=== PATIENT | male | born 1955 | race Caucasian/White ===

== ENCOUNTER → 2019-01-03 | Outpatient (REF) | payer OTHER ==
[2019-01-03 12:36] LABS: BASO # 0.1 10^3/uL (0.0-0.2); BASO % 0.8 % (0.0-1.0); EOS # 0.3 10^3/uL (0.0-0.50); EOS % 3.6 % (0.0-3.0); HEMATOCRIT 44.7 % (42.0-52.0); HEMOGLOBIN 15.2 g/dl (13.5-17.5); LYMPH # 1.8 10^3/uL (1.5-4.5); LYMPH % 23.7 % (24.0-44.0); MEAN CORPUSCULAR VOLUME 97.2 fl (80.0-96.0); MONO % 12.4 % (0.0-5.0); NEUTROPHILS # 4.6 10^3/uL (1.8-7.7); NEUTROPHILS % 59.1 % (36.0-66.0); PLATELET COUNT, AUTOMATED 185 10^3/uL (150-450); WHITE BLOOD COUNT 7.7 10^3/uL (4.0-10.0)
[2019-01-03 13:12] LABS: ALBUMIN 4.3 GM/DL (3.2-5.2); ALT/SGPT 69 U/L (12-78); BILIRUBIN,TOTAL 0.6 MG/DL (0.2-1.0); BLOOD UREA NITROGEN 15 MG/DL (7-18); CALCIUM LEVEL 9.5 MG/DL (8.8-10.2); CARBON DIOXIDE LEVEL 31 MEQ/L (21-32); CHLORIDE LEVEL 106 MEQ/L (98-107); CREATININE FOR GFR 1.07 MG/DL (0.70-1.30); FREE T4 0.85 NG/DL (0.76-1.46); GLOMERULAR FILTRATION RATE > 60.0 (>49); GLUCOSE, FASTING 96 MG/DL (70-100); POTASSIUM SERUM 5.6 MEQ/L (3.5-5.1); SODIUM LEVEL 137 MEQ/L (136-145); TOTAL PROTEIN 7.1 GM/DL (6.4-8.2)
== END ==
LOC: M SFHCADAM 08:17
PROVIDERS: ATTEND Physician Assistant Medical
DX: L29.9 Pruritus, unspecified (principal); F10.10 Alcohol abuse, uncomplicated
CPT/HCPCS: 80053; 80061; 84439; 84443; 85025; G0103

== ENCOUNTER → 2019-08-07 | Outpatient (REF) | payer OTHER ==
[2019-08-07 18:34] LABS: ALBUMIN 4.2 GM/DL (3.2-5.2); BILIRUBIN,TOTAL 0.6 MG/DL (0.2-1.0); CALCIUM LEVEL 9.7 MG/DL (8.8-10.2); CREATININE FOR GFR 1.32 MG/DL (0.70-1.30); GLOMERULAR FILTRATION RATE 58.1 (>49); POTASSIUM SERUM 5.1 MEQ/L (3.5-5.1); TOTAL PROTEIN 7.8 GM/DL (6.4-8.2)
== END ==
LOC: M SFHCADAM 13:14
PROVIDERS: ATTEND Physician Assistant Medical
DX: I10 Essential (primary) hypertension (principal); Z00.00 Encounter for general adult medical examination without abnormal findings; F17.210 Nicotine dependence, cigarettes, uncomplicated; F10.10 Alcohol abuse, uncomplicated

== ENCOUNTER → 2020-01-29 | Outpatient (REF) | payer OTHER ==
[2020-01-29 12:55] LABS: BASO # 0.1 10^3/uL (0.0-0.2); BASO % 0.7 % (0.0-1.0); EOS # 0.2 10^3/uL (0.0-0.5); HEMATOCRIT 44.8 % (42.0-52.0); HEMOGLOBIN 15.7 g/dl (13.5-17.5); LYMPH # 1.6 10^3/uL (1.5-5.0); LYMPH % 19.6 % (24.0-44.0); MEAN CORPUSCULAR HEMOGLOBIN 33.9 pg (27.0-33.0); MEAN CORPUSCULAR VOLUME 96.8 fl (80.0-96.0); MONO # 0.9 10^3/uL (0.0-0.8); MONO % 10.4 % (0.0-5.0); NEUTROPHILS # 5.6 10^3/uL (1.5-8.5); NEUTROPHILS % 67.2 % (36.0-66.0); PLATELET COUNT, AUTOMATED 178 10^3/uL (150-450); RED BLOOD COUNT 4.63 10^6/uL (4.30-6.10); WHITE BLOOD COUNT 8.3 10^3/uL (4.0-10.0)
[2020-01-29 13:06] LABS: ALT/SGPT 77 U/L (12-78); BILIRUBIN,TOTAL 0.4 MG/DL (0.2-1.0); BLOOD UREA NITROGEN 15 MG/DL (7-18); CALCIUM LEVEL 9.2 MG/DL (8.8-10.2); CARBON DIOXIDE LEVEL 27 MEQ/L (21-32); CHLORIDE LEVEL 99 MEQ/L (98-107); CHOLESTEROL LEVEL 203 MG/DL (<200); CHOLESTEROL RISK RATIO 2.333 (<5); CREATININE FOR GFR 1.16 MG/DL (0.70-1.30); GLOMERULAR FILTRATION RATE > 60.0 (>49); GLUCOSE, FASTING 167 MG/DL (70-100); HDL CHOLESTEROL 87 MG/DL (>40); LDL CHOLESTEROL 106 MG/DL (<100); NON-HDL-C 116 MG/DL; SODIUM LEVEL 133 MEQ/L (136-145); TOTAL PROTEIN 7.2 GM/DL (6.4-8.2); TRIGLYCERIDES LEVEL 51 MG/DL (<150)
== END ==
LOC: M SFHCADAM 09:01
PROVIDERS: ATTEND Physician Assistant Medical
DX: I10 Essential (primary) hypertension (principal); F17.210 Nicotine dependence, cigarettes, uncomplicated; F10.10 Alcohol abuse, uncomplicated

== ENCOUNTER → 2020-02-05 | Outpatient (REF) | payer MEDICARE ==
[2020-02-05 13:28] LABS: HEMOGLOBIN A1c 5.5 %
== END ==
LOC: M SFHCADAM 08:51
PROVIDERS: ATTEND Physician Assistant Medical
DX: R73.01 Impaired fasting glucose (principal)
CPT/HCPCS: 83036; G0402

== ENCOUNTER → 2020-11-05 | Outpatient (REF) | payer MEDICARE, OTHER ==
[2020-11-05 16:28] LABS: BASO % 0.3 % (0.0-1.0); EOS # 0.2 10^3/uL (0.0-0.5); EOS % 1.8 % (0.0-3.0); HEMATOCRIT 42.9 % (42.0-52.0); HEMOGLOBIN 14.5 g/dl (13.5-17.5); LYMPH # 1.5 10^3/uL (1.5-5.0); LYMPH % 17.1 % (24.0-44.0); MEAN CORPUSCULAR HEMOGLOBIN 32.7 pg (27.0-33.0); MEAN CORPUSCULAR HGB CONC 33.8 g/dl (32.0-36.5); MEAN CORPUSCULAR VOLUME 96.6 fl (80.0-96.0); NEUTROPHILS # 6.2 10^3/uL (1.5-8.5); NEUTROPHILS % 69.5 % (36.0-66.0); PLATELET COUNT, AUTOMATED 185 10^3/uL (150-450); RED BLOOD COUNT 4.44 10^6/uL (4.30-6.10); WHITE BLOOD COUNT 8.9 10^3/uL (4.0-10.0)
[2020-11-05 16:42] LABS: ALBUMIN 4.5 GM/DL (3.2-5.2); BILIRUBIN,TOTAL 0.5 MG/DL (0.2-1.0); CALCIUM LEVEL 9.9 MG/DL (8.8-10.2); CREATININE FOR GFR 1.29 MG/DL (0.70-1.30); FREE T4 1.05 NG/DL (0.76-1.46); GLOMERULAR FILTRATION RATE 59.5 (>49); POTASSIUM SERUM 5.2 MEQ/L (3.5-5.1); THYROID STIMULATING HORMONE 1.01 uIU/ML (0.358-3.740); TOTAL PROTEIN 7.6 GM/DL (6.4-8.2)
== END ==
LOC: M SFHCADAM 13:31
PROVIDERS: ATTEND Physician Assistant Medical
DX: R22.1 Localized swelling, mass and lump, neck (principal); Z79.899 Other long term (current) drug therapy

== ENCOUNTER → 2020-11-19 | Outpatient (REF) | payer MEDICARE, OTHER ==
[2020-11-19 13:27] LABS: CHOLESTEROL LEVEL 170 MG/DL (<200); CHOLESTEROL RISK RATIO 1.868 (<5); HDL CHOLESTEROL 91 MG/DL (>40); LDL CHOLESTEROL 72 MG/DL (<100); NON-HDL-C 79 MG/DL; TRIGLYCERIDES LEVEL 35 MG/DL (<150)
[2020-11-19 13:47] LABS: HEPATITIS B SURFACE ANTIGEN NEGATIVE (NEGATIVE)
[2020-11-19 14:14] LABS: HEPATITIS C VIRUS ABY INDEX < 0.0 INDEX (<0.8)
[2020-11-19 14:15] LABS: HEPATITIS B CORE ANTIBODY IGM NEGATIVE (NEGATIVE)
[2020-11-19 14:17] LABS: HEPATITIS A ANTIBODY IGM NEGATIVE (NEGATIVE)
== END ==
LOC: M SFHCADAM 08:56
PROVIDERS: ATTEND Physician Assistant Medical
DX: E78.2 Mixed hyperlipidemia (principal); I10 Essential (primary) hypertension; R79.89 Other specified abnormal findings of blood chemistry; D38.0 Neoplasm of uncertain behavior of larynx

== ENCOUNTER → 2020-11-19 | Outpatient (REF) | payer MEDICARE, OTHER ==
[2020-11-19 12:59] LABS: BLOOD UREA NITROGEN 10 MG/DL (7-18); CREATININE FOR GFR 0.97 MG/DL (0.70-1.30); GLOMERULAR FILTRATION RATE > 60.0 (>49)
== END ==
LOC: M LABDRWAD 12:24
PROVIDERS: ATTEND Specialist
DX: D38.0 Neoplasm of uncertain behavior of larynx (principal)

== ENCOUNTER → 2020-11-21 | Outpatient (CLI) | payer MEDICARE ==
[~2020-11-21] MED LIST: ISOVUE-370 76% 100ML VIAL As Ordered ONE
--- NOTE | 2020-11-21 18:45 | REPVR ---
PROCEDURE INFORMATION: Exam: CT Neck With Contrast Exam date and time: 11/21/2020 6:07 PM Age: 65 years old Clinical indication: Other: Neoplasm; Additional info: Joce karthikeyan of [employer] TECHNIQUE: Imaging protocol: Computed tomography images of the neck with intravenous contrast. Radiation optimization: All CT scans at this facility use at least one of these dose optimization techniques: automated exposure control; mA and/or kV adjustment per patient size (includes targeted exams where dose is matched to clinical indication); or iterative reconstruction. Contrast material: ISOVUE 370; Contrast volume: 75 ml; Contrast route: INTRAVENOUS (IV); COMPARISON: No relevant prior studies available. FINDINGS: Nasopharynx: Unremarkable. Oropharynx: Unremarkable. No significant tonsillar enlargement. Hypopharynx: Unremarkable. Larynx: Unremarkable. Normal epiglottis. Retropharyngeal space: Unremarkable. Submandibular/Parotid glands: Normal. Glands are normal in size. Thyroid: Large glottic and infraglottic soft tissue mass on the right side of the larynx measuring 2.8 x 2.3 x 4.5 cm extending anteriorly beyond the anterior commissure into the left side of the larynx, and laterally to the hyoid bone as well as extending lateral to the boundaries of the right thyroid cartilage. Lymph nodes: Enlarged level 2-3 carotid lymph nodes demonstrated on the right measuring 9, 8.5, and 7 mm. Trachea: Visualized trachea is unremarkable. Lungs: Unremarkable as visualized. Bones/joints: The cervical spine demonstrates moderate degenerative changes. Vasculature: Bilateral atherosclerotic calcifications in the proximal internal carotid arteries. Soft tissues: Unremarkable. No significant soft tissue swelling. Other findings: Calcified granulomata right apex. IMPRESSION: 1. 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 2. Enlarged cervical chain lymph nodes on the right consistent with metastatic disease. COMMENTS: Consistent with the [employer]'s Incidental Findings Committee white paper (J Am Dameon Radiol 2015): In patients aged 35 years and older with an incidental thyroid nodule equal to or greater than 1.[address], MRI or extrathyroidal US, further evaluation with dedicated thyroid US is recommended for patients with normal life expectancy and without comorbidities. For smaller nodules without suspicious features, no further evaluation or follow up is recommended. Electronically signed by: Fabien Bailey On 11/21/2020 18:45:43 PM
== END ==
LOC: M RAD 18:00
PROVIDERS: ATTEND Specialist
DX: D38.0 Neoplasm of uncertain behavior of larynx (principal)
CPT/HCPCS: 70491; Q9967

== ENCOUNTER → 2020-11-28 | Outpatient (CLI) | payer MEDICARE ==
--- NOTE | 2020-11-28 08:17 | REP ---
INDICATION: ELEVATED LFTS. COMPARISON: None. TECHNIQUE: Right upper quadrant sonography. FINDINGS: Scanning through the right upper quadrant of the abdomen demonstrates a normal sized, thin-walled gallbladder without evidence of stone or polyp. Common bile duct is normal measuring 0.6 cm in greatest diameter. No focal liver lesion is seen. Liver size is normal. No pancreatic abnormality is observed. No right renal abnormality is seen. There is no evidence of ascites. The right kidney measures 12.0 x 5.5 x 4.8 cm. There is a fold in the fundus of the gallbladder. This is normal. IMPRESSION: Negative right upper quadrant sonography. <Electronically signed by Kevin Pedraza > 11/28/20 0823
== END ==
LOC: M RAD 06:31
PROVIDERS: ATTEND Physician Assistant Medical
DX: R79.89 Other specified abnormal findings of blood chemistry (principal)

== ENCOUNTER → 2020-12-16 | Outpatient (CLI) | payer MEDICARE, OTHER ==
--- NOTE | 2020-12-16 11:40 | REP ---
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 COMPARISON: Comparison soft tissue neck CT study November 21, 2020.. TECHNIQUE: Fifty minutes following the intravenous injection of a 17.84 mCi dose of F-18 FDG, three-dimensional PET scintigraphy is acquired from the skull base to the proximal thighs. Triplanar noncontrast CT scanning is acquired through the same anatomic range for attenuation correction, and image registration with scan parameters optimized to minimize radiation exposure to the patient. PET scintigraphy and CT datasets were fused and displayed on a workstation with multiplanar and projection display capability. FINDINGS: The patient's known supraglottic laryngeal mass is quite hypermetabolic. Maximum standard uptake value in the right supraglottic laryngeal mass is 11.74. There are 3 identifiable right anterior cervical lymph nodes which are also hypermetabolic. The most cranial of these has maximum standard uptake value 8.91. There is a small node believed to be just lateral to the main mass with maximum standard uptake value 4.40. Caudal to the level of the mass, there is a enlarged lymph node with maximum standard uptake value 6.71. No other cervical adenopathy is appreciated. No contralateral hypermetabolic uptake is observed in the head and neck soft tissues. No abnormal hypermetabolic uptake is seen within the thorax. In the abdomen and pelvis, normal hepatic, splenic, and gastrointestinal FDG distribution is seen. No abnormal hypermetabolic uptake is seen in the abdomen or pelvis. IMPRESSION: The known right supraglottic mass and 3 right anterior cervical lymph nodes show hypermetabolic uptake. Otherwise negative <Electronically signed by Kevin Pedraza > 12/16/20 [id number]
== END ==
LOC: M PLARAD 07:30
PROVIDERS: ATTEND Specialist
DX: C32.8 Malignant neoplasm of overlapping sites of larynx (principal)
CPT/HCPCS: 78815; A9552

== ENCOUNTER → 2021-01-09 | Outpatient (CLI) | payer MEDICARE, OTHER ==
[~2021-01-09] MED LIST changes: -ISOVUE-370 76% 100ML VIAL As Ordered ONE; +LISI20TA33 PO
--- NOTE | 2021-01-09 20:33 | ECGEPIP ---
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
== END ==
LOC: M EKG 11:29
PROVIDERS: ATTEND Anesthesiology
DX: Z01.818 Encounter for other preprocedural examination (principal)

== ENCOUNTER → 2021-01-09 | Outpatient (CLI) | payer MEDICARE, OTHER | LOC: M LABSMTC 12:26 | PROVIDERS: ATTEND Anesthesiology | DX: Z01.818 Encounter for other preprocedural examination (principal); Z11.52 Encounter for screening for COVID-19 ==

== ENCOUNTER 2021-01-13 07:04 | Day surgery (SDC) | payer MEDICARE, OTHER ==
[~2021-01-13] VITALS: Ht 180.3 cm; Wt 75.7 kg
[~2021-01-13 07:04] MED LIST changes: +LR 1,000 ML IV ONE
[2021-01-13] MEDS ORDERED: propofoL 200 MG/20 ML VIAL As Ordered ONE ×2 (08:15→09:41)
[2021-01-13] MEDS ORDERED: LIDOCAINE 2% 100MG/5ML SDV (FOR ANES.) As Ordered ONE (08:16)
[2021-01-13] MEDS ORDERED: ROCURONIUM BROMIDE 50 MG/5 ML VIAL As Ordered ONE (08:17)
[2021-01-13] MEDS ORDERED: ONDANSETRON 4MG/2ML VIAL As Ordered ONE (08:21)
[2021-01-13] MEDS ORDERED: MIDAZOLAM INJ 2MG/2ML VIAL (J2250 PER 1MG) As Ordered ONE (08:21)
[2021-01-13] MEDS ORDERED: dexameTHASONE 4 MG/ML 1ML VIAL (J1100 PER 1MG) As Ordered ONE (08:21)
[2021-01-13] MEDS ORDERED: fentaNYL 100 MCG/2 ML INJECTION (J3010) As Ordered ONE ×2 (08:21→09:40)
[2021-01-13] MEDS ORDERED: CETACAINE SPRAY 5GM As Ordered ONE (08:55)
[2021-01-13] MEDS ORDERED: METHYLENE BLUE 0.5% (5MG/ML) 10 ML AMP (PROVAYBLUE) As Ordered ONE (08:56)
[2021-01-13] MEDS ORDERED: EPINEPHrine 1MG/ML INJ 30ML MD-VIAL As Ordered ONE (08:56)
[2021-01-13] MEDS ORDERED: ALBUTEROL 6.7GM INHALER **FOR ANES. CART/OMNICELL ONLY As Ordered ONE (09:32)
[2021-01-13] MEDS ORDERED: OXYMETAZOLINE 0.05% NASAL SPRAY (AFRIN) As Ordered ONE (09:36)
[2021-01-13] MEDS ORDERED: SUCCINYLCHOLINE 100 MG/5 ML SYRINGE (J0330) As Ordered ONE (09:47)
[2021-01-13] MEDS ORDERED: ACETAMINOPHEN 1000MG 100ML IV BTL (OFIRMEV) (J0131 PER 10MG) As Ordered ONE (09:52)
[2021-01-13] MEDS ORDERED: PERCOCET 5MG/325MG TAB PO PRN (10:25)
[2021-01-13] MEDS ORDERED: fentaNYL 100 MCG/2 ML INJECTION (J3010) IV PRN (10:25)
[2021-01-13] MEDS ORDERED: ONDANSETRON 4MG/2ML VIAL IV PRN (10:25)
[2021-01-13] MEDS ORDERED: LR 1,000 ML IV SCH (10:25)
[2021-01-13] MEDS ORDERED: METOCLOPRAMIDE INJ 10MG/2ML VIAL (J2765 PER 1) IV PRN (10:25)
[2021-01-13 11:10] VITALS: BP 186/74
--- NOTE | 2021-01-13 11:29 | RO ---
OPERATIVE NOTE DATE OF OPERATION: 01/13/2021 PREOPERATIVE DIAGNOSIS: Neoplastic mass of the right supraglottic larynx and hypopharynx. 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 PROCEDURE: Direct laryngoscopy with biopsy. SURGEON: Jose Carlos Campbell MD GENERAL MATCHER: ANESTHESIA: INDICATIONS: This is a 65-year-old with long history of smoking, presents with 2-3 month history of sore throat. Office examination suggested the presence of large infiltrating mass of the right lateral pharynx and piriform fossa area. DESCRIPTION OF PROCEDURE: Satisfactory general endotracheal anesthesia was administered. The patient was placed in the usual position for head and neck endoscopy. Double-lighted Dedo laryngoscope was inserted into the oropharynx. There was quite vascular bleeding mass seen emerging from the lateral aspect of the aryepiglottic fold extending laterally toward the pharyngeal wall on the right. This mass did not extend down into the glottis; in fact the glottis was completely free of any tumor. There was no real identifiable space between this tumor mass and the lateral pharyngeal wall on the right. The base of tongue seemed to be free of any tumor. The postcricoid region was clear and the left lateral pharynx and hypopharynx were normal. Photomicrographs were taken and multiple biopsies were taken. For hemostasis Adrenalin pledgets were placed on the bleeding mass and suction cautery was used to coagulate the surface. Throat was suctioned. The patient was awakened, extubated and sent to recovery in satisfactory condition. He will return to the office to discuss management options.
== END 2021-01-13 11:10 | disposition home or self-care (01) ==
LOC: M SDC 07:04
PROVIDERS: ATTEND Specialist
DX: C32.9 Malignant neoplasm of larynx, unspecified (principal); I10 Essential (primary) hypertension; E78.5 Hyperlipidemia, unspecified; Z79.899 Other long term (current) drug therapy; F17.218 Nicotine dependence, cigarettes, with other nicotine-induced disorders
CPT/HCPCS: 31535; 88305; J0131; J0330; J1100; J2250; J2405; J3010; Q9968

== ENCOUNTER → 2021-01-21 | Outpatient (CLI) | payer MEDICARE, OTHER ==
[~2021-01-21] MED LIST changes: -LR 1,000 ML IV ONE
--- NOTE | 2021-01-21 12:32 | RADONC.CN ---
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 He is seen today for consideration of chemoradiation. Diagnosis/Treatment History Oncologic History October 2020: Developed sore throat 11/21/20: CT neck with right supraglottic mass 12/16/20: PET-CT with right supraglottic avidity and multiple ipsilateral cervical nodes 01/13/21: DL and biopsy showing SCC Relevant data: 12/16/20 PET-CT FINDINGS: The patient's known supraglottic laryngeal mass is quite hypermetabolic. Maximum standard uptake value in the right supraglottic laryngeal mass is 11.74. There are 3 identifiable right anterior cervical lymph nodes which are also hypermetabolic. The most cranial of these has maximum standard uptake value 8.91. There is a small node believed to be just lateral to the main mass with maximum standard uptake value 4.40. Caudal to the level of the mass, there is a enlarged lymph node with maximum standard uptake value 6.71. No other cervical adenopathy is appreciated. No contralateral hypermetabolic uptake is observed in the head and neck soft tissues. No abnormal hypermetabolic uptake is seen within the thorax. In the abdomen and pelvis, normal hepatic, splenic, and gastrointestinal FDG distribution is seen. No abnormal hypermetabolic uptake is seen in the abdomen or pelvis. IMPRESSION: The known right supraglottic mass and 3 right anterior cervical lymph nodes show hypermetabolic uptake. Otherwise negative Interval History Here with his . Currently smokes, trying to quit. Still eating all foods, albeit with pain. Does not note any weight loss. Wears dentures. Would prefer no PEG tube. Energy level preserved. 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 Currently pain controlled with ibuprofen. No other significant medical problems. Past Medical History: HPL HTN Past Surgical History: As above Family History: No family history of cancer Social History: Current 1/2 ppd smoker for 50 years Drinks 2 drinks approximately 2 days per week Allergies / Meds Allergies: Coded Allergies: No Known Allergies (Unverified , 01/08/21) Home Meds Reported Medications Lisinopril (Lisinopril) 20 Mg Tablet, 20 MG PO DAILY, TAB 4/21/21 Review of Systems General: Reports: Normal Appetite Constitutional: Denies: Chills, Fever, Night Sweats Eyes: Denies: Pain, Vision change HEENT: Reports: Sore Throat; Denies: Head Aches, Ear Pain, Dysphagia, Sinus Congestion, Post Nasal Drip, Epistaxis Skin: Denies: Rash, Lesions, Bruising Pulmonary: Denies: Dyspnea, Cough Cardiovascular: Denies: Chest Pain, Palpitations, Edema Gastrointestinal: Denies: Nausea, Vomiting, Abdominal Pain, Diarrhea Genitourinary: Denies: Dysuria, Frequency, Incontinence Hematologic: Denies: Bruising, Petecchia, Enlarged Lymph Nodes Musculoskeletal: Denies: Neck pain, Back pain Neurological: Denies: Weakness, Numbness, Incoordination Psych: Reports: Mood Normal; Denies: Memory Issues, Thoughts of Self Harm Vital Signs Ht 72" Wt 170 lbs BMI 23 T 97.5 P 86 RR 18 BP 153/86 O2 97% Pain 0 Fatigue 0 General Exam: Positive: Alert, Cooperative, No Acute Distress Eye Exam: Positive: PERRLA, EOMI ENT EXAM: Positive: Atraumatic, Pharynx Normal, Other ENT (Complete oral cavity examination performed: There are no discernible or palpable mucosal or FOM lesions on bimanual exam. There are no tonsillar or tongue base lesions palpable. He is edentulous with good fitting top and bottom dentures. There are no palpable cervical nodes. Larynx elevated normally with swallowing, laryngeal crepitus intact. ) Chest Exam: Positive: Clear to auscultation Heart Exam: Positive: Rate Normal Abdomen Exam: Positive: Soft Extremity Exam: Negative: Edema Skin Exam: Positive: Nl turgor and temperature Neuro Exam: Positive: Normal Gait, Normal Speech, Cranial Nerves 3-12 NL Psych Exam: Positive: Mental status NL Other Physical Findings Laryngoscopy: The patient provided verbal consent to be scoped. Cetacaine was introduced in the right nostril for anesthesia. The scope was passes through the nasal passage to the nasopharynx where no lesions were noted. The posterior pharyngeal wall was pink and well hydrated. The scope was passed to the oropharynx where on the right side there was obvious mucosal fullness and redness, without ulceration noted on the vallecula, right AE fold, and the BL lingual epiglottis. The epiglottic lesion did not seem to fully envelop the region to the laryngeal surface. The larynx itself was freely mobile and free of tumor. The BL BOT were clear. The pyriform sinus orifice on the right was obscured, the left was clear. The scope was withdrawn and the patient tolerated the procedure well. Diagnostic and Laboratory Diagnostic Review Radiologic images, relevant labs and pathology reports were personally reviewed and discussed with Mr. Montes De Oca. Assessment and Plan Impression Mr. Montes De Oca is a 65 year old male with a history of [id number] stage SERGO SCC of the supraglottic larynx. He is seen today for consideration of chemoradiation. Stage Stage SERGO [id number] SCC of the right supraglottic larynx Performance Status ECOG 1 Plan We had an extensive discussion with Mr. Montes De Oca regarding the diagnosis at hand and available therapeutic options. He is a good candidate for laryngeal preservation based on my exam and on the PET-CT results. His tumor is irregular and involves the epiglottis primarily, because of this he might experience a higher chance of late dysphagia than others, therefore I will refer to MECHANIC SOUND TECHNICIAN now. We discussed PEG tube placement, but because he is a healthy BMI, has had no weight loss and is still taking solid foods I did not insist that he have one placed. He and I agreed to do without for now. For treatment I recommend chemoradiation 70 Gy in 35 fractions with concurrent cisplatin either weekly or q3w at the discretion of medical oncology. I will try and expedite his consultation with them so as not to delay his treatment (was scheduled for 01/13/21 which is too far out). He does not need dental clearance due to edentulousness. We discussed the logistics of receiving radiation therapy in detail including the need for a 1-time planning session. This can occur early next week. We reviewed the side effects of treatment including pain, dysphagia, skin reaction, fibrosis, dysgeusia, ORN, hypothyroidism, and xerostomia. After discussing the risks, benefits and alternatives to radiation therapy, Mr. Montes De Oca was amenable to pursuing radiotherapy. All questions were answered to the patient's satisfaction. We instructed the patient that if there were any questions,concerns or changes in clinical status in the interim to contact us. Recommendations Chemoradiation 70 Gy in 35 fractions Will attempt to expedite medical oncology consult Simulation in the next week Referral to MECHANIC SOUND TECHNICIAN Defer feeding tube for now Billing Statement Total time of [66] minutes was spent preparing for the visit [3], obtaining HPI [10], examining the patient [13], reviewing diagnostic tests [5], discussing management options [20], coordinating care [5], and writing this note [10]. VIVEK FOOTE MD January 21, 2021 12:31
== END ==
LOC: M ONCR 09:45
PROVIDERS: ATTEND General Practice
DX: C13.9 Malignant neoplasm of hypopharynx, unspecified (principal); C32.9 Malignant neoplasm of larynx, unspecified

== ENCOUNTER 2021-02-03 10:14 | Outpatient (RCR) | payer MEDICARE, OTHER ==
[~2021-02-03 10:14] MED LIST changes: +DEXA4TA PO; +PROC10TA4 PO
[2021-02-20] MEDS ORDERED: PROC10TA4 PO (14:18)
[2021-02-20] MEDS ORDERED: DEXA4TA PO (14:18)
== END 2021-02-17 ==
LOC: M ONCR 10:14
PROVIDERS: ATTEND General Practice
DX: C32.1 Malignant neoplasm of supraglottis (principal)

== ENCOUNTER → 2021-03-19 | Outpatient (RCR) | payer MEDICARE, OTHER ==
[~2021-03-19] MED LIST changes: +LIDO2SOL17 PO; +MAGICMW SSP; +NYST50SS SSP; +OXYC1SOL3 PO
== END ==
LOC: M ONCR 02-19 08:51
PROVIDERS: ATTEND General Practice
DX: C32.1 Malignant neoplasm of supraglottis (principal)

== ENCOUNTER → 2021-04-08 | Outpatient (CLI) | payer MEDICARE, OTHER ==
[~2021-04-08] MED LIST changes: +LIDOCAINE 1% MDV 20ML VIAL As Ordered ONE
[2021-04-08 11:45] VITALS: BP 176/78
--- NOTE | 2021-04-08 18:45 | REP ---
PROCEDURE NAME: PICC LINE INSERTION W/SITERITE CLINICAL INFORMATION: POOR VENOUS ACCESS w/HEAD/NECK CA FOR CHEMO. COMPARISON: None. PROCEDURE DESCRIPTION: The procedure was performed by CHELSIE Harris, under the direct supervision of Dr. Brooks. The risks and benefits of the procedure were explained to the patient and an informed consent was obtained both verbally and written. Directly prior to the start of the procedure a formal time-out was completed in the procedure room. The right medial brachial vein was localized using ultrasound guidance. The skin was prepped and draped in sterile fashion. Two mL of 1% lidocaine 10 mg/mL was used as a local anesthetic. Using ultrasound guidance the right medial brachial vein was cannulated, and a 0.018 guidewire was inserted and advanced to the level of SVC using fluoroscopic guidance. The needle was removed and a 4.5 Lithuanian dilator and peel-away sheath was inserted over the guidewire. A 4.5 Lithuanian single lumen catheter was cut to a length of 37 cm. The dilator was removed and the catheter was inserted over the guidewire with the tip ending at the level of the SVC. The peel-away sheath was removed and the catheter was flushed with heparinized saline as per hospital protocol. The catheter was affixed to the skin and a sterile dressing was applied. The patient tolerated the procedure well and there were no immediate complications. CONCLUSION: PICC line insertion into the right medial brachial vein. 0.1 minutes of fluoroscopy time was utilized for this procedure. Some fluoroscopic images are performed with last image hold technology. These images require no additional radiation. <Electronically signed by Valeria Costa > 04/08/21 1436 <Electronically signed by Caleb Brooks > 04/08/21 [id number]
== END ==
LOC: M IRPRO 10:01
PROVIDERS: ATTEND Internal Medicine
DX: C76.0 Malignant neoplasm of head, face and neck (principal)
CPT/HCPCS: 36571; 76937; C1751; J1642; J1644

== ENCOUNTER 2021-04-14 09:05 | Outpatient (RCR) | payer MEDICARE, OTHER ==
[~2021-04-14 09:05] MED LIST changes: -LIDOCAINE 1% MDV 20ML VIAL As Ordered ONE
== END 2021-04-19 ==
LOC: M ONCR 09:05
PROVIDERS: ATTEND General Practice
DX: C32.1 Malignant neoplasm of supraglottis (principal)

== ENCOUNTER → 2021-04-25 | Outpatient (CLI) | payer MEDICARE, OTHER ==
[~2021-04-25] MED LIST changes: +GASTROGRAFIN SOLUTION 30ML (Q9963) As Ordered ONE; +ISOVUE-370 76% 100ML VIAL As Ordered ONE
--- NOTE | 2021-04-25 13:20 | REP ---
INDICATION: THROAT CA. COMPARISON: PET scan dated 12/16/2020. TECHNIQUE: Chest CT with IV contrast. FINDINGS: There are no lung nodules or masses. There are no infiltrates or pleural effusions. There is no mediastinal, hilar or axillary lymphadenopathy. No lymphadenopathy at the thoracic inlet. The thoracic aorta is unremarkable. Cardiac size is normal. There is no pericardial effusion. There are no lytic, blastic or destructive skeletal changes. IMPRESSION: Essentially negative CT study of the chest. <Electronically signed by Caleb Fontaine > 04/25/21 [id number]
--- NOTE | 2021-04-25 13:25 | REP ---
INDICATION: THROAT CA. COMPARISON: PET scan dated 12/16/2020. TECHNIQUE: Abdomen/pelvis CT with IV contrast performed contiguously with the chest CT this same date. FINDINGS: The hepatic parenchyma is homogeneous. The gallbladder and pancreas are unremarkable. The spleen, adrenals, and kidneys are unremarkable. The abdominal aorta is unremarkable except for calcified atheroma. There is no periaortic adenopathy or mass. The bowel and mesentery are unremarkable. There is no ascites. No mesenteric adenopathy. Pelvis: There is no ascites or adenopathy. The bladder is unremarkable. There are no lytic, blastic or destructive skeletal changes. There is degenerative disc disease in the lumbar spine. IMPRESSION: Essentially negative CT of the abdomen and pelvis. <Electronically signed by Caleb Fontaine > 04/25/21 [id number]
--- NOTE | 2021-04-30 16:09 | REPVR ---
PROCEDURE INFORMATION: Exam: CT Neck With Contrast Exam date and time: 04/25/2021 12:50 PM Age: 65 years old Clinical indication: Condition or disease; Cancer; Throat; Additional info: Throat CA TECHNIQUE: Imaging protocol: Computed tomography images of the neck with contrast. Radiation optimization: All CT scans at this facility use at least one of these dose optimization techniques: automated exposure control; mA and/or kV adjustment per patient size (includes targeted exams where dose is matched to clinical indication); or iterative reconstruction. Contrast material: ISOVUE 370; Contrast volume: 75 ml; Contrast route: INTRAVENOUS (IV); COMPARISON: CT Neck with contrast 11/21/2020 6:10 PM FINDINGS: Nasopharynx: Unremarkable. Oropharynx: Unremarkable. No significant tonsillar enlargement. Hypopharynx: Improved compared to the prior study. There is persistent masslike thickening of the right epiglottis as well as right hypopharynx, specifically thickening of the right aryepiglottic fold as well as piriform sinus herrera. Areas of soft tissue thickening are partially calcified. Larynx: See hypopharynx above comments on the epiglottis. Retropharyngeal space: Unremarkable. Submandibular/Parotid glands: Normal. Glands are normal in size. Thyroid: Normal. No enlarged or calcified nodules. Lymph nodes: Decreased right cervical lymphadenopathy. For example, a right level 2 lymph node measures 6 x 5 mm compared to 12 x 9 mm previously. An additional right level 2 lymph node is similar in size measuring approximately 9 x 7 mm compared to 10 x 6 mm previously. The lymph nodes appears more dense, likely partially calcified. Residual hyperdense, partially calcified treated right level 2 lymph node measures 7 x 6 mm compared to 11 x 9 mm previously. There are shotty dense potentially calcified lymph nodes deep to the right sternocleidomastoid muscle, image 59 series 201, image 34 series 203; component of enhancing shotty metastatic adenopathy is possible. Though small in size, these lymph nodes do appear more conspicuous compared to the prior study. Trachea: Visualized trachea is unremarkable. Lungs: Unremarkable as visualized. Bones/joints: Moderate cervical spine degenerative changes. Focal, sclerotic lesion in the right aspect of the T1 vertebral body is stable, probably a bone island. Vasculature: Carotid atherosclerosis is again demonstrated, in particular proximal right ICA atherosclerosis. Soft tissues: Unremarkable. IMPRESSION: 1. Improvement compared to the prior study with residual right supraglottic mass. 2. Residual right cervical lymphadenopathy some of which appears hyperdense probably reflecting post treatment change. Electronically signed by: Marcela Cabrera On 04/30/2021 16:08:40 PM
== END ==
LOC: M RAD 11:17
PROVIDERS: ATTEND Internal Medicine
DX: C14.0 Malignant neoplasm of pharynx, unspecified (principal)
CPT/HCPCS: 70491; 71260; 74177; Q9963; Q9967

== ENCOUNTER → 2021-04-29 | Outpatient (CLI) | payer MEDICARE, OTHER ==
[~2021-04-29] MED LIST changes: -GASTROGRAFIN SOLUTION 30ML (Q9963) As Ordered ONE; -ISOVUE-370 76% 100ML VIAL As Ordered ONE
--- NOTE | 2021-04-29 09:34 | RADENCPD ---
Date/Time of Encounter Date of Encounter: Apr 29, 2021 Time of Encounter: 09:26 Encounter Sarbjit came in for a brief follow up today now 2 weeks removed from completing his chemoradiation for supraglottic SCC. His pain in the throat peaked in the days immediately after completing treatment on 04/14/21. This has since resolved completely. He has no choking or difficulty swallowing at this point. He does complain of decreased appetite and lightheadedness with standing especially in the last week. He does not have any taste sensations at present. Food is unappealing. Vitals: Wt 152 lbs (from 160 on 04/14/21) T 96.5 P 98 RR 18 BP 110/65 O2 99% Pain 0 Fatigue 7 Oral cavity is clear, no thrush or residual mucositis of the soft palate or oropharynx Neck with hyperpigmentation and resolving dry desquamation No palpable adenopathy BL Sarbjit is likely dehydrated as indicated by his elevated BL heart rate and weight loss. I encouraged him to focus on drinking extra fluids and eating calorie dense foods. He should strive to stabilize his weight loss over the next week and then try to gain a modest 0.5-1 lb weekly I reviewed his recent CT scans (ordered by medical oncology apparently for what purpose I do not know, given PET-CT @ 3 months is standard and had been ordered). These show no concerning findings in the neck, chest, abdomen or pelvis. We agreed that he would call back in a week if he continues to feel depleted despite rehydration and improved nutrition. Otherwise will follow up in June with his PET-CT and scope exam. VIVEK FOOTE MD Apr 29, 2021 09:34
== END ==
LOC: M ONCR 08:50
PROVIDERS: ATTEND General Practice
DX: C32.1 Malignant neoplasm of supraglottis (principal); Z92.21 Personal history of antineoplastic chemotherapy; Z92.3 Personal history of irradiation

== ENCOUNTER → 2021-07-07 | Outpatient (CLI) | payer MEDICARE, OTHER ==
--- NOTE | 2021-07-07 12:26 | REP ---
INDICATION: RESTAGING SUPRAGLOTTIC CANCER C32.1. COMPARISON: 12/16/2020 TECHNIQUE: After the intravenous administration of 8.88 mCi of FDG 18 triplane whole-body PET-CT was performed from the skull base to the mid thigh. FINDINGS: The focal supraglottic laryngeal particularly right-sided hypermetabolic activity seen at the level of the hyoid bone on the prior examination is no longer present. There is a more diffuse type hypermetabolic activity pattern at that level and inferiorly including the posterior soft tissues at the level of the thyroid cartilage in the region of the arytenoid cartilages and having a maximal SUV value of 4.02. There is a single tiny focus of hypermetabolic activity seen in the mediastinum at the level of the oriana having a maximal SUV value of 3.27. No other areas of abnormal hypermetabolic activity are seen in the neck, chest, abdomen, or pelvis. There is diffuse hypermetabolism seen throughout the esophagus which is likely secondary to reflux esophagitis. There is scattered hypermetabolism seen throughout the axial skeleton likely secondary to chemo reactive change. IMPRESSION: Hypermetabolism described above involving the neck is all likely secondary to post radiation changes as the focality of the abnormality seen on the prior exam has abated. This, however, needs to be correlated clinically with close follow-up. The single focus of hypermetabolic activity seen in the mediastinum has no corresponding CT finding of adenopathy. This needs to be followed closely with contrast-enhanced CT of the chest as today CT is a nondiagnostic noncontrast enhanced CT. The skeletal activity seen today is likely secondary to chemo reactive change. <Electronically signed by Scottie Garcia > 07/07/21 [id number]
== END ==
LOC: M PLARAD 08:55
PROVIDERS: ATTEND General Practice
DX: C32.1 Malignant neoplasm of supraglottis (principal)
CPT/HCPCS: 78815; A9552

== ENCOUNTER → 2021-07-10 | Outpatient (CLI) | payer MEDICARE, OTHER ==
[~2021-07-10] MED LIST changes: +CETACAINE SPRAY 5GM MT ONE
--- NOTE | 2021-07-10 11:03 | RADONC ---
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 He underwent chemoradiation 70 Gy in 35 fractions with weekly cisplatin completed 02/19/21- 04/14/21. He is seen for follow up and survivorship care. Diagnosis/Treatment History Oncologic History October 2020: Developed sore throat 11/21/20: CT neck with right supraglottic mass 12/16/20: PET-CT with right supraglottic avidity and multiple ipsilateral cervical nodes 01/13/21: DL and biopsy showing SCC 02/19/21-04/14/21: Chemoradiation 70 Gy in 35 fractions weekly cisplatin Recent data: 07/07/21 PET-CT Mild and diffuse residual uptake in the neck. No focal uptake in the right supraglottis or previously avid LN CR Survivorship: Test Due Next Last result Notes TSH, T4 6m post-tx, then q1y 09/2021 Carotid US q10 y post-tx 2030 Smoking cessation Assess annually if applicable N/A Quit 01/[address] q1y once CR confirmed Summer 2021 PET-CT 07/07/21 CBC,CMP, Lipids q1y Summer 2021 Interval History Sarbjit is doing well. Weight and appetite are stable. No oral pain. No dysphagia or dry mouth. Taste sensations are returning slowly. He is off his BP medications. 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 Social History: 25 pack year former smoker (quit January 2021) Drinks 2 drinks 2 days per week Allergies / Meds Allergies: Coded Allergies: No Known Allergies (Unverified , 01/08/21) Home Meds Active Scripts Oxycodone HCl (Oxycodone HCl) 5 Mg/5 Ml Solution, 5 ML PO Q4HP PRN for MUCOSITIS MDD 30 Milliliter(s) for 7 Days, #210 ML Prov:VIVEK FOOTE MD 03/31/21 Lidocaine HCl (Lidocaine HCl Viscous) 15 Ml Solution, 15 ML PO QID PRN for MUCOSITIS for 1 Day, #400 ML 5 Refills Prov:VIVEK FOOTE MD 02/26/21 Prochlorperazine Maleate (Prochlorperazine Maleate) 10 Mg Tablet, 10 MG PO Q4H PRN for NAUSEA OR VOMITING for 5 Days, #15 TAB 2 Refills Prov:DORY RESTREPO MDFRCP 02/20/21 Reported Medications Lisinopril (Lisinopril) 20 Mg Tablet, 20 MG PO DAILY, TAB 01/08/21 Review of Systems Review of Systems Constitutional: Denies: Chills, Fever, Fatigue, Weight Loss Eyes: Denies: Pain HEENT: Denies: Head Aches, Ear Pain, Dysphagia, Sore Throat Skin: Denies: Rash Pulmonary: Denies: Dyspnea, Cough Cardiovascular: Denies: Chest Pain Gastrointestinal: Denies: Abdominal Pain Hematologic: Denies: Enlarged Lymph Nodes Endocrine: Denies: Cold Intolerance Musculoskeletal: Denies: Neck pain, Back pain Neurological: Denies: Weakness, Numbness Psych: Reports: Mood Normal Physical Examination Vital Signs Wt 165 lbs T 97 P 114 RR 16 BP 161/86 O2 99% Pain 0 Fatigue 0 General Exam: Alert, Cooperative, No Acute Distress Eye Exam: [facility] E[facility] EXAM: Other ENT (Full head and neck exam completed: The oral mucosa is pink and well hydrated. Top and bottom dentures in place. There are no visible or palpable lesions in the oral cavity, FOM and the visible portions of the oropharynx. Gag reflex is strong. There is no trismus. The necks are mildly hyperpigmentated, with some submental lymphedema present. The larynx elevates appropriately with swallowing, there is preserved laryngeal crepitus. Voice is strong. There is no palpable adenopathy BL.) Chest Exam: Clear to auscultation, Normal air movement Heart Exam: Rate Normal, Regular Rhythm Abdomen Exam: Soft Extremity Exam: Negative: Edema Neuro Exam: Normal Gait, Normal Speech, Cranial Nerves 3-12 NL Psych Exam: Mental status NL Other Physical Findings Laryngoscopy: Sarbjit provided verbal consent to be scoped. Cetacaine was introduced in the right nare for anesthesia. The scope was introduced and easily passed to the right nasopharynx which was normal appearing. The posterior pharyngeal wall was pink and well hydrated, the scope was then passed to the oropharynx and the BL BOT were WNL without lesions. The epiglottis was upright and sharp rimmed, the left AE fold was normal appearing, the right AE fold and vallecula contain a pale white scar without evidence of mass or ulceration. The larynx is freely mobile with phonation no true cord or ventricular lesions. The pyriform sinuses are normal appearing BL. The scope was withdrawn and the patient tolerated the procedure well. Diagnostic and Laboratory Diagnostic Review Radiologic images, relevant labs and pathology reports were personally reviewed and discussed with Mr. Montes De Oca. Assessment and Plan Impression Assessment Mr. 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 He underwent chemoradiation 70 Gy in 35 fractions with weekly cisplatin completed 02/19/21-04/14/21. He is seen f or follow up and survivorship care. He has recovered very well. His PET-CT demonstrates a CR. His exam today has no evidence of residual or recurrent tumor. He is thus in remission. For survivorship he is due for TFTs at next visit which will be in 3 months time. Performance Status ECOG 0 Plan Follow up in 3 months TFTs at next visit Mr. Montes De Oca was encouraged to call with questions or concerns in the interim period. Billing Statement Total time of [32] minutes was spent preparing for the visit [1], obtaining HPI [5], examining the patient [7], reviewing diagnostic tests [4], discussing management options [5], coordinating care [2], and writing this note [8]. VIVEK FOOTE MD Jul 10, 2021 11:03
== END ==
LOC: M ONCR 08:50
PROVIDERS: ATTEND General Practice
DX: C32.1 Malignant neoplasm of supraglottis (principal); Z79.899 Other long term (current) drug therapy; Z87.891 Personal history of nicotine dependence; Z92.21 Personal history of antineoplastic chemotherapy; Z92.3 Personal history of irradiation
CPT/HCPCS: 31575; G0463

== ENCOUNTER → 2021-10-06 | Outpatient (CLI) | payer MEDICARE, OTHER ==
[~2021-10-06] MED LIST changes: -CETACAINE SPRAY 5GM MT ONE; -PROC10TA4 PO; +PROC10TA5 PO; +SODIUM CHLORIDE 0.9% INJ 10 ML SYR IV PRN
[2021-10-06 10:18] LABS: FREE T4 1.19 NG/DL (0.76-1.46); THYROID STIMULATING HORMONE 0.867 uIU/ML (0.358-3.740)
== END ==
LOC: M ONCR 08:56
PROVIDERS: ATTEND General Practice
DX: C32.1 Malignant neoplasm of supraglottis (principal)

== ENCOUNTER → 2022-01-15 | Outpatient (CLI) | payer MEDICARE, OTHER ==
[~2022-01-15] MED LIST changes: +CETACAINE SPRAY 5GM MT ONE; -SODIUM CHLORIDE 0.9% INJ 10 ML SYR IV PRN; +SYMB16INH INH; +VENTAER INH
== END ==
LOC: M ONCR 08:18
PROVIDERS: ATTEND General Practice
DX: C32.1 Malignant neoplasm of supraglottis (principal); R06.09 Other forms of dyspnea; R05.8 Other specified cough; R63.4 Abnormal weight loss; Z79.899 Other long term (current) drug therapy; Z87.891 Personal history of nicotine dependence; Z92.21 Personal history of antineoplastic chemotherapy; Z92.3 Personal history of irradiation
CPT/HCPCS: 31575; G0463

== ENCOUNTER → 2022-01-23 | Outpatient (CLI) | payer MEDICARE, OTHER ==
[~2022-01-23] MED LIST changes: -CETACAINE SPRAY 5GM MT ONE; +ISOVUE-370 76% 100ML VIAL As Ordered ONE
[2022-01-23 18:07] LABS: ALBUMIN 2.9 GM/DL (3.2-5.2); BILIRUBIN,TOTAL 0.5 MG/DL (0.2-1.0); CALCIUM LEVEL 10.8 MG/DL (8.8-10.2); CREATININE FOR GFR 1.56 MG/DL (0.70-1.30); GLOMERULAR FILTRATION RATE 47.5 (>49); POTASSIUM SERUM 4.5 MEQ/L (3.5-5.1); TOTAL PROTEIN 7.5 GM/DL (6.4-8.2)
== END ==
LOC: M RAD 16:58
PROVIDERS: ATTEND General Practice
DX: C32.1 Malignant neoplasm of supraglottis (principal)
CPT/HCPCS: 36415; 70491; 71260; 80053; Q9967

== ENCOUNTER → 2022-02-23 | Outpatient (CLI) | payer MEDICARE, OTHER ==
[~2022-02-23] MED LIST changes: -ISOVUE-370 76% 100ML VIAL As Ordered ONE
== END ==
LOC: M PLARAD 11:15
PROVIDERS: ATTEND General Practice
DX: C32.2 Malignant neoplasm of subglottis (principal)
CPT/HCPCS: 78815; A9552

== ENCOUNTER → 2022-02-26 | Outpatient (CLI) | payer MEDICARE, OTHER ==
[~2022-02-26] MED LIST changes: +LIDOCAINE 1% MDV 20ML VIAL As Ordered ONE; +ONDA-84 PO
[2022-02-26 10:45] VITALS: BP 129/70
== END ==
LOC: M IRPRO 10:01
PROVIDERS: ATTEND General Practice
DX: R22.2 Localized swelling, mass and lump, trunk (principal); Z85.828 Personal history of other malignant neoplasm of skin

== ENCOUNTER → 2022-02-27 | Outpatient (CLI) | payer MEDICARE, OTHER ==
[~2022-02-27] MED LIST changes: -LIDOCAINE 1% MDV 20ML VIAL As Ordered ONE; -ONDA-84 PO
== END ==
LOC: M ONCR 08:59
PROVIDERS: ATTEND General Practice
DX: C32.1 Malignant neoplasm of supraglottis (principal); C76.1 Malignant neoplasm of thorax; C77.0 Secondary and unspecified malignant neoplasm of lymph nodes of head, face and neck; R53.83 Other fatigue; R63.0 Anorexia; Z79.51 Long term (current) use of inhaled steroids; Z87.891 Personal history of nicotine dependence; Z92.21 Personal history of antineoplastic chemotherapy; Z92.3 Personal history of irradiation

== ENCOUNTER → 2022-03-09 | Outpatient (CLI) | payer MEDICARE, OTHER ==
[~2022-03-09] MED LIST changes: +LIDOCAINE 1% MDV 20ML VIAL As Ordered ONE; +MIDAZOLAM INJ 2MG/2ML VIAL (J2250 PER 1MG) As Ordered ONE; +NS 1,000 ML IV SCH; +ONDA-84 PO; +ceFAZolin 2 GM/D5W 50 ML IV BAG (J0690 PER 500MG) As Ordered ONE; +ceFAZolin SOD 2 GM in IV 1 EA IV ONE; +diphenhydrAMINE 50MG/ML VIAL (J1200) As Ordered ONE; +fentaNYL 100 MCG/2 ML INJECTION As Ordered ONE
[2022-03-09 12:07] LABS: HEMATOCRIT 33.5 % (42.0-52.0); HEMOGLOBIN 10.5 g/dl (13.5-17.5); MEAN CORPUSCULAR HEMOGLOBIN 30.8 pg (27.0-33.0); MEAN CORPUSCULAR HGB CONC 31.3 g/dl (32.0-36.5); MEAN CORPUSCULAR VOLUME 98.2 fl (80.0-96.0); PLATELET COUNT, AUTOMATED 224 10^3/uL (150-450); RED BLOOD COUNT 3.41 10^6/uL (4.30-6.10); WHITE BLOOD COUNT 11.4 10^3/uL (4.0-10.0)
[2022-03-09 12:16] LABS: INR 0.94
[2022-03-09 12:36] LABS: ALBUMIN 2.9 GM/DL (3.2-5.2); BILIRUBIN,TOTAL 0.5 MG/DL (0.2-1.0); CREATININE FOR GFR 2.24 MG/DL (0.70-1.30); GLOMERULAR FILTRATION RATE 31.3 (>49); POTASSIUM SERUM 4.3 MEQ/L (3.5-5.1); TOTAL PROTEIN 7.8 GM/DL (6.4-8.2)
[2022-03-09 15:33] VITALS: BP 129/71
== END ==
LOC: M IRPRO 10:55
PROVIDERS: ATTEND General Practice
DX: C32.1 Malignant neoplasm of supraglottis (principal)
CPT/HCPCS: 36561; 80053; 85027; 85610; 87426; C1769; C1788; C1894; J0690; J1200; J1642; J1644; J2250; J3010

== ENCOUNTER → 2022-03-24 | Outpatient (POV) | payer MEDICARE, OTHER ==
[~2022-03-24] VITALS: Ht 180.3 cm; Wt 59.1 kg
[~2022-03-24] MED LIST changes: -LIDOCAINE 1% MDV 20ML VIAL As Ordered ONE; -MIDAZOLAM INJ 2MG/2ML VIAL (J2250 PER 1MG) As Ordered ONE; -NS 1,000 ML IV SCH; -ceFAZolin 2 GM/D5W 50 ML IV BAG (J0690 PER 500MG) As Ordered ONE; -ceFAZolin SOD 2 GM in IV 1 EA IV ONE; -diphenhydrAMINE 50MG/ML VIAL (J1200) As Ordered ONE; -fentaNYL 100 MCG/2 ML INJECTION As Ordered ONE
[2022-03-24 13:15] VITALS: BP 139/75
== END ==
LOC: M IRPOV 13:08
PROVIDERS: ATTEND Radiology Diagnostic Radiology
DX: Z45.2 Encounter for adjustment and management of vascular access device (principal)

== ENCOUNTER 2022-04-01 14:54 | Inpatient (IN) | payer MEDICARE, OTHER ==
[~2022-04-01] VITALS: Ht 180.3 cm; Wt 56.9 kg
[2022-04-01 15:50] LABS: HEMATOCRIT 23.7 % (42.0-52.0); MEAN CORPUSCULAR HEMOGLOBIN 32.4 pg (27.0-33.0); MEAN CORPUSCULAR HGB CONC 33.8 g/dl (32.0-36.5); RED BLOOD COUNT 2.47 10^6/uL (4.30-6.10); WHITE BLOOD COUNT 1.2 10^3/uL (4.0-10.0)
[2022-04-01] MEDS ORDERED: NS 1,000 ML IV SCH (15:55)
[2022-04-01 16:03] LABS: INR 0.94
[2022-04-01 16:10] LABS: PLATELET COUNT, AUTOMATED 18 10^3/uL (150-450)
[2022-04-01 16:30] LABS: CALCIUM LEVEL 10.2 MG/DL (8.8-10.2); CREATININE FOR GFR 1.64 MG/DL (0.70-1.30); FREE T4 1.34 NG/DL (0.76-1.46); GLOMERULAR FILTRATION RATE 44.8 (>49); MAGNESIUM LEVEL 2.6 MG/DL (1.8-2.4); POTASSIUM SERUM 4.2 MEQ/L (3.5-5.1); THYROID STIMULATING HORMONE 3.51 uIU/ML (0.358-3.740)
[2022-04-01 17:02] LABS: ATYPICAL LYMPH 4 % (0-5); BASOPHILS 2 % (0-1); MONOCYTES 12 % (0-5)
[2022-04-01 17:03] LABS: LYMPHOCYTES 28 % (16-44); NEUTROPHILS 50 % (28-66); PLATELET ESTIMATE MARKED DECREASE (NORMAL)
[2022-04-01 17:04] LABS: OVALOCYTES 1+
[2022-04-01] MEDS ORDERED: GLUCOSE 4GM CHEW TABLET PO PRN (17:25)
[2022-04-01] MEDS ORDERED: DEXTROSE 50% 50 ML SYRINGE IV PRN (17:25)
[2022-04-01] MEDS ORDERED: GLUCAGON INJ 1MG VIAL SC PRN (17:25)
[2022-04-01] MEDS ORDERED: HOME MED LIST COMPLETE! XX SCH (17:50)
[2022-04-01] MEDS ORDERED: SODIUM CHLORIDE 0.9% INJ 10 ML SYR IV PRN (18:20)
[2022-04-01] MEDS: D5W/0.45% SODIUM CHLORIDE 1,000 ML IV SCH ×2 (18:30→23:59)
[2022-04-01 18:38] LABS: RSV AMPLIFICATION NEGATIVE (NEGATIVE)
[2022-04-01] MEDS ORDERED: HEPARIN SOD (PORCINE) 5000UNITS/ML 1ML VIAL/SYRINGE SQ SCH (19:40)
[2022-04-01] MEDS ORDERED: ALBUTEROL 90 MCG/ACT 8GM HFA INHALER INH PRN (19:40)
[2022-04-01] MEDS ORDERED: PROCHLORPERAZINE 5MG TAB PO PRN (19:40)
[2022-04-01 23:44] VITALS: BP_SYST 118; BP_SYST 123; BP_SYST 145; BP_DIAS 70; BP_DIAS 73; BP_DIAS 82
[2022-04-02] VITALS (10 sets, daily range): BP systolic 98–148; BP diastolic 53–75
[2022-04-02 06:21] LABS: MEAN CORPUSCULAR HEMOGLOBIN 31.4 pg (27.0-33.0); MEAN CORPUSCULAR HGB CONC 32.8 g/dl (32.0-36.5); MEAN CORPUSCULAR VOLUME 95.7 fl (80.0-96.0)
[2022-04-02 06:40] LABS: HEMOGLOBIN 6.6 g/dl (13.5-17.5); PLATELET COUNT, AUTOMATED 18 10^3/uL (150-450)
[2022-04-02 06:41] LABS: HEMATOCRIT 20.1 % (42.0-52.0)
[2022-04-02 07:07] LABS: CALCIUM LEVEL 9.1 MG/DL (8.8-10.2); CREATININE FOR GFR 1.46 MG/DL (0.70-1.30); GLOMERULAR FILTRATION RATE 51.3 (>49); PHOSPHORUS LEVEL 3.1 MG/DL (2.5-4.9); POTASSIUM SERUM 4.4 MEQ/L (3.5-5.1)
[2022-04-02] MEDS: CYPROHEPTADINE 4 MG TAB PO SCH ×3 (08:24→17:41)
[2022-04-02] MEDS ORDERED: SODIUM CHLORIDE 0.9% INJ 10 ML SYR IV SCH (09:00)
[2022-04-02 11:56] LABS: PERCENT SATURATION 44.1 % (19.7-50.0)
[2022-04-02 12:44] LABS: FOLATE 22.7 NG/ML
[2022-04-02] MEDS ORDERED: ISOVUE-370 76% 100ML VIAL As Ordered ONE (15:45)
[2022-04-02] MEDS: D5W/0.45% SODIUM CHLORIDE 1,000 ML IV SCH (16:15)
[2022-04-02 18:00] LABS: HEMATOCRIT 28.5 % (42.0-52.0)
[2022-04-02 18:15] LABS: HEMOGLOBIN 9.7 g/dl (13.5-17.5)
[2022-04-02] MEDS ORDERED: SENNA 8.6 MG TAB (SENOKOT) PO PRN (21:30)
[2022-04-02 23:04] LABS: APPEARANCE, URINE CLEAR (CLEAR); BACTERIA, URINE AUTO NEGATIVE (NEGATIVE); BILIRUBIN, URINE AUTO NEGATIVE (NEGATIVE); BLOOD, URINE BLOOD NEGATIVE (NEGATIVE); COLOR, URINE YELLOW (YELLOW); GLUCOSE, URINE (UA) AUTO NEGATIVE (NEGATIVE); KETONE, URINE AUTO NEGATIVE (NEGATIVE); LEUKOCYTE ESTERASE, URINE AUTO NEGATIVE (NEGATIVE); NITRITE, URINE AUTO NEGATIVE (NEGATIVE); PROTEIN, URINE AUTO NEGATIVE (NEGATIVE); RBC, URINE AUTO 0 /HPF (0-3); SPECIFIC GRAVITY URINE AUTO 1.023 (1.002-1.035); SQUAMOUS EPITHELIAL CELL UR AU 0 /HPF (0-6); UROBILINOGEN, URINE AUTO 0.2 mg/dL (0.0-2.0); WBC, URINE AUTO 0 /HPF (0-3)
[2022-04-03] MEDS: TAMSULOSIN 0.4 MG CAP PO SCH ×2 (01:06→20:16)
[2022-04-03] MEDS: D5W/0.45% SODIUM CHLORIDE 1,000 ML IV SCH ×3 (01:45→21:13)
[2022-04-03 05:46] VITALS: BP 127/67
[2022-04-03 05:57] LABS: HEMATOCRIT 25.7 % (42.0-52.0); HEMOGLOBIN 8.8 g/dl (13.5-17.5); MEAN CORPUSCULAR HEMOGLOBIN 31.1 pg (27.0-33.0); MEAN CORPUSCULAR HGB CONC 34.2 g/dl (32.0-36.5); MEAN CORPUSCULAR VOLUME 90.8 fl (80.0-96.0); RED BLOOD COUNT 2.83 10^6/uL (4.30-6.10)
[2022-04-03 06:04] LABS: PLATELET COUNT, AUTOMATED 21 10^3/uL (150-450)
[2022-04-03 06:13] LABS: MAGNESIUM LEVEL 1.9 MG/DL (1.8-2.4); PHOSPHORUS LEVEL 2.4 MG/DL (2.5-4.9)
[2022-04-03 06:35] VITALS: BP_SYST 123; BP_SYST 127; BP_SYST 128; BP_DIAS 66; BP_DIAS 67
[2022-04-03] MEDS: DOCUSATE SODIUM 100MG CAPSULE PO SCH ×2 (08:31→20:16)
[2022-04-03] MEDS: MIRALAX *UNIT DOSE* 17GM PACKET PO SCH (08:31)
[2022-04-03] MEDS: CYPROHEPTADINE 4 MG TAB PO SCH ×3 (08:31→16:34)
[2022-04-03 09:26] LABS: CREATININE FOR GFR 1.34 MG/DL (0.70-1.30); GLOMERULAR FILTRATION RATE 56.6 (>49)
[2022-04-03] MEDS: K-PHOS NEUTRAL 250MG TABLET (SOD.PHOSPHATE/POT.PHOSPHATE) PO SCH ×3 (11:42→20:16)
[2022-04-03] MEDS: LevoFLOXacin 750 MG TABLET PO SCH (13:50)
[2022-04-03 14:00] VITALS: BP 153/76
[2022-04-03 14:10] LABS: HEMATOCRIT 26.4 % (42.0-52.0)
[2022-04-03] MEDS: FILGRASTIM 300 MCG/0.5 ML SYRINGE **SC ADMINISTRATION ONLY SC SCH (16:34)
[2022-04-03 19:48] VITALS: BP 143/72
[2022-04-04 05:16] VITALS: BP 120/65
[2022-04-04] MEDS: D5W/0.45% SODIUM CHLORIDE 1,000 ML IV SCH (06:16)
[2022-04-04 08:01] LABS: HEMATOCRIT 23.7 % (42.0-52.0); HEMOGLOBIN 8.2 g/dl (13.5-17.5); MEAN CORPUSCULAR HEMOGLOBIN 31.5 pg (27.0-33.0); MEAN CORPUSCULAR HGB CONC 34.6 g/dl (32.0-36.5); MEAN CORPUSCULAR VOLUME 91.2 fl (80.0-96.0)
[2022-04-04 08:03] LABS: PLATELET COUNT, AUTOMATED 28 10^3/uL (150-450)
[2022-04-04 08:19] LABS: CALCIUM LEVEL 9.2 MG/DL (8.8-10.2); CREATININE FOR GFR 1.28 MG/DL (0.70-1.30); GLOMERULAR FILTRATION RATE 59.7 (>49); POTASSIUM SERUM 3.4 MEQ/L (3.5-5.1)
[2022-04-04] MEDS: MIRALAX *UNIT DOSE* 17GM PACKET PO SCH (08:23)
[2022-04-04] MEDS: CYPROHEPTADINE 4 MG TAB PO SCH ×3 (08:23→17:36)
[2022-04-04] MEDS: DOCUSATE SODIUM 100MG CAPSULE PO SCH ×2 (08:23→20:36)
[2022-04-04] MEDS: K-PHOS NEUTRAL 250MG TABLET (SOD.PHOSPHATE/POT.PHOSPHATE) PO SCH ×2 (08:23→16:08)
[2022-04-04] MEDS ORDERED: POTASSIUM CHLORIDE 10MEQ SR TABLET PO ONE (09:30)
[2022-04-04 10:00] VITALS: BP 117/59
[2022-04-04] MEDS: FILGRASTIM 300 MCG/0.5 ML SYRINGE **SC ADMINISTRATION ONLY SC SCH (13:13)
[2022-04-04 14:00] VITALS: BP 110/67
[2022-04-04 15:05] LABS: TOTAL PROTEIN 5.3 GM/DL (6.4-8.2)
[2022-04-04 15:12] LABS: PH BODY FLUID 7.255 UNITS (NOT ESTABLISHED); SOURCE, BODY FLUID pH PLEURAL
[2022-04-04 15:16] LABS: APPEARANCE, BODY FLUID CLOUDY (CLEAR); PLEURAL FL COLOR YELLOW (COLORLESS); SOURCE, BODY FLUID PLEURAL
[2022-04-04 15:38] LABS: SOURCE, BODY FLUID ALBUMIN PLEURAL; SOURCE, BODY FLUID TOT PROTEIN PLEURAL
[2022-04-04 15:47] LABS: AMYLASE, BODY FLUID 27 U/L (NOT ESTABLISHED); CHOLESTEROL, BODY FLUID < 50 MG/DL (NOT ESTABLISHED); LDH, BODY FLUID 1000 U/L (NOT ESTABLISHED); SOURCE, BODY FLUID AMYLASE PLEURAL; SOURCE, BODY FLUID CHOL PLEURAL; SOURCE, BODY FLUID GLUCOSE PLEURAL; SOURCE, BODY FLUID LDH PLEURAL
[2022-04-04 18:00] VITALS: BP 111/65
[2022-04-04] MEDS: TAMSULOSIN 0.4 MG CAP PO SCH (20:36)
[2022-04-04 21:00] VITALS: BP 110/64
[2022-04-05] VITALS (8 sets, daily range): BP systolic 80–120; BP diastolic 48–62
[2022-04-05] MEDS: LevoFLOXacin 750 MG TABLET PO SCH (05:29)
[2022-04-05 06:41] LABS: HEMATOCRIT 23.4 % (42.0-52.0); HEMOGLOBIN 7.8 g/dl (13.5-17.5); MEAN CORPUSCULAR HEMOGLOBIN 30.5 pg (27.0-33.0); MEAN CORPUSCULAR HGB CONC 33.3 g/dl (32.0-36.5); MEAN CORPUSCULAR VOLUME 91.4 fl (80.0-96.0); RED BLOOD COUNT 2.56 10^6/uL (4.30-6.10); WHITE BLOOD COUNT 3.1 10^3/uL (4.0-10.0)
[2022-04-05 06:44] LABS: PLATELET COUNT, AUTOMATED 43 10^3/uL (150-450)
[2022-04-05 07:03] LABS: BLOOD UREA NITROGEN 21 MG/DL (7-18); CARBON DIOXIDE LEVEL 28 MEQ/L (21-32); CHLORIDE LEVEL 103 MEQ/L (98-107); CREATININE FOR GFR 1.25 MG/DL (0.70-1.30); GLOMERULAR FILTRATION RATE > 60.0 (>49); GLUCOSE, FASTING 85 MG/DL (70-100); MAGNESIUM LEVEL 1.7 MG/DL (1.8-2.4); PHOSPHORUS LEVEL 2.6 MG/DL (2.5-4.9); SODIUM LEVEL 137 MEQ/L (136-145)
[2022-04-05 07:44] LABS: ATYPICAL LYMPH 1 % (0-5); LYMPHOCYTES 21 % (16-44); MONOCYTES 13 % (0-5); NEUTROPHILS 46 % (28-66)
[2022-04-05 07:46] LABS: OVALOCYTES 2+; PLATELET ESTIMATE DECREASED (NORMAL)
[2022-04-05] MEDS: MIRALAX *UNIT DOSE* 17GM PACKET PO SCH (08:36)
[2022-04-05] MEDS: CYPROHEPTADINE 4 MG TAB PO SCH ×3 (08:36→17:35)
[2022-04-05] MEDS: DOCUSATE SODIUM 100MG CAPSULE PO SCH ×2 (08:36→21:10)
[2022-04-05] MEDS ORDERED: MAGNESIUM OXIDE 400MG TAB (MAG-OX) PO ONE (12:25)
[2022-04-05] MEDS ORDERED: FILGRASTIM 300 MCG/0.5 ML SYRINGE **SC ADMINISTRATION ONLY SC ONE (14:00)
[2022-04-05] MEDS ORDERED: NS 1,000 ML IV ONE (14:15)
[2022-04-06 02:00] VITALS: BP 107/67
[2022-04-06 06:02] LABS: HEMATOCRIT 28.4 % (42.0-52.0); HEMOGLOBIN 9.5 g/dl (13.5-17.5); MEAN CORPUSCULAR HEMOGLOBIN 31.4 pg (27.0-33.0); MEAN CORPUSCULAR HGB CONC 33.5 g/dl (32.0-36.5); MEAN CORPUSCULAR VOLUME 93.7 fl (80.0-96.0); RED BLOOD COUNT 3.03 10^6/uL (4.30-6.10); WHITE BLOOD COUNT 6.3 10^3/uL (4.0-10.0)
[2022-04-06 06:06] LABS: PLATELET COUNT, AUTOMATED 66 10^3/uL (150-450)
[2022-04-06 06:11] VITALS: BP 110/53
[2022-04-06 06:19] LABS: CALCIUM LEVEL 9.1 MG/DL (8.8-10.2); CREATININE FOR GFR 1.45 MG/DL (0.70-1.30); GLOMERULAR FILTRATION RATE 51.7 (>49); MAGNESIUM LEVEL 1.7 MG/DL (1.8-2.4); PHOSPHORUS LEVEL 2.5 MG/DL (2.5-4.9)
[2022-04-06] MEDS: DOCUSATE SODIUM 100MG CAPSULE PO SCH (09:00)
[2022-04-06] MEDS: MIRALAX *UNIT DOSE* 17GM PACKET PO SCH (09:00)
[2022-04-06] MEDS: CYPROHEPTADINE 4 MG TAB PO SCH ×2 (09:04→12:23)
[2022-04-06] MEDS ORDERED: NS 500 ML IV ONE (09:25)
[2022-04-06 10:00] VITALS: BP 108/62
[2022-04-06 14:19] LABS: CALCIUM LEVEL 9.3 MG/DL (8.8-10.2); CREATININE FOR GFR 1.42 MG/DL (0.70-1.30); GLOMERULAR FILTRATION RATE 52.9 (>49); POTASSIUM SERUM 3.9 MEQ/L (3.5-5.1)
[2022-04-06] MEDS ORDERED: CYPR4TA PO (16:43)
[2022-04-06] MEDS ORDERED: LEVO750T13 PO (16:54)
== END 2022-04-06 18:10 | disposition home health service (06) | DRG 808 ==
LOC: M ED 14:54 → M ED INP 17:20 → M MSPAV 23:42
PROVIDERS: ADMIT Internal Medicine; ATTEND Internal Medicine
DX: D61.810 Antineoplastic chemotherapy induced pancytopenia (principal); J18.9 Pneumonia, unspecified organism; D84.9 Immunodeficiency, unspecified; C79.89 Secondary malignant neoplasm of other specified sites; C78.2 Secondary malignant neoplasm of pleura; J98.11 Atelectasis; I12.9 Hypertensive chronic kidney disease with stage 1 through stage 4 chronic kidney disease, or unspecified chronic kidney disease; N18.30 Chronic kidney disease, stage 3 unspecified; R53.1 Weakness; C32.9 Malignant neoplasm of larynx, unspecified; Z87.891 Personal history of nicotine dependence; Z79.899 Other long term (current) drug therapy; R91.1 Solitary pulmonary nodule

== ENCOUNTER 2022-05-15 10:53 | Inpatient (IN) | payer MEDICARE, OTHER ==
[2022-05-15] VITALS (20 sets, daily range): BP systolic 92–162; BP diastolic 38–80
[~2022-05-15] VITALS: Ht 180.3 cm; Wt 55.4 kg
[~2022-05-15 10:53] MED LIST changes: +CYPR4TA PO; +LEVO1TAB40 PO; +NYST50SS PO
[2022-05-15] MEDS ORDERED: cefTRIAXone SOD 2 GM in D5W MINI-BAG PLUS 50 ML IV ONE (11:20)
[2022-05-15] MEDS ORDERED: [UNRECOGNIZED DRUG - OTHER] (11:35)
[2022-05-15 11:42] LABS: BASO % 0.2 % (0.0-1.0); EOS % 0.1 % (0.0-3.0); HEMOGLOBIN 10.5 g/dl (13.5-17.5); LYMPH # 0.5 10^3/uL (1.5-5.0); LYMPH % 3.6 % (24.0-44.0); MEAN CORPUSCULAR HEMOGLOBIN 32.3 pg (27.0-33.0); MEAN CORPUSCULAR HGB CONC 32.8 g/dl (32.0-36.5); MEAN CORPUSCULAR VOLUME 98.5 fl (80.0-96.0); MONO # 1.1 10^3/uL (0.0-0.8); MONO % 8.5 % (2.0-8.0); NEUTROPHILS # 10.9 10^3/uL (1.5-8.5); PLATELET COUNT, AUTOMATED 153 10^3/uL (150-450); RED BLOOD COUNT 3.25 10^6/uL (4.30-6.10); WHITE BLOOD COUNT 12.6 10^3/uL (4.0-10.0)
[2022-05-15 11:54] LABS: INR 0.96; PROTHROMBIN TIME 13.2 SECONDS (12.7-14.5)
[2022-05-15 11:55] LABS: PARTIAL THROMBOPLASTIN TIME 42.7 SECONDS (25.9-37.0)
[2022-05-15 12:03] LABS: RSV AMPLIFICATION NEGATIVE (NEGATIVE)
[2022-05-15 12:30] LABS: ALBUMIN 3.3 GM/DL (3.2-5.2); BILIRUBIN,DIRECT 0.2 MG/DL (0.0-0.2); BILIRUBIN,TOTAL 0.4 MG/DL (0.2-1.0); C REACTIVE PROTEIN QUANTITATIV 18.7 MG/DL (0.00-0.30); CALCIUM LEVEL 10.5 MG/DL (8.8-10.2); CREATININE FOR GFR 1.53 MG/DL (0.70-1.30); FREE T4 1.29 NG/DL (0.76-1.46); GLOMERULAR FILTRATION RATE 48.6 (>49); MAGNESIUM LEVEL 2.3 MG/DL (1.8-2.4); POTASSIUM SERUM 4.3 MEQ/L (3.5-5.1); THYROID STIMULATING HORMONE 3.8 uIU/ML (0.358-3.740)
[2022-05-15] MEDS ORDERED: NS 1,620 ML in IV 1 EA IV ONE (13:10)
[2022-05-15] MEDS ORDERED: METOPROLOL 5 MG/5 ML VIAL IV SCH (13:10)
[2022-05-15] MEDS ORDERED: METOPROLOL 5 MG/5 ML VIAL As Ordered ONE (13:16)
[2022-05-15] MEDS ORDERED: DIGOXIN INJ 0.5 MG/2 ML AMP (J1160) As Ordered ONE (13:38)
[2022-05-15] MEDS ORDERED: DIGOXIN INJ 0.5 MG/2 ML AMP (J1160) IV ONE (13:40)
[2022-05-15] MEDS ORDERED: HOME MED LIST COMPLETE! XX SCH (14:55)
[2022-05-15 14:59] LABS: CK-MB VALUE MASS < 1.0 NG/ML (<3.6); CPK CREATINE PHOSPHOKINASE 13 U/L (39-308); MB/CK RELATIVE INDEX 7.69 (< OR =4)
[2022-05-15 16:36] LABS: CK-MB VALUE MASS 1.4 NG/ML (<3.6); MB/CK RELATIVE INDEX 4.52 (< OR =4)
[2022-05-15] MEDS ORDERED: ISOVUE-370 76% 100ML VIAL As Ordered ONE (16:38)
[2022-05-15] MEDS ORDERED: ALBUTEROL 90 MCG/ACT 8GM HFA INHALER INH PRN (16:55)
[2022-05-15] MEDS ORDERED: PROCHLORPERAZINE 5MG TAB PO PRN (16:55)
[2022-05-15] MEDS ORDERED: ONDANSETRON 4MG TAB PO PRN (16:55)
[2022-05-15 19:12] LABS: MB/CK RELATIVE INDEX 14.29 (< OR =4)
[2022-05-15] MEDS ORDERED: flumazeniL 0.5 MG/5 ML VIAL As Ordered ONE (19:44)
[2022-05-15] MEDS ORDERED: MIDAZOLAM INJ 2MG/2ML VIAL (J2250 PER 1MG) As Ordered ONE (19:44)
[2022-05-15] MEDS ORDERED: LIDOCAINE 1% MDV 20ML VIAL As Ordered ONE (19:44)
[2022-05-15] MEDS ORDERED: ACETAMINOPHEN TAB 650MG DOSE (2X325MG) PO PRN (20:15)
[2022-05-15] MEDS ORDERED: KCL 20MEQ IN D5/NS 1000ML 1,000 ML IV SCH (20:15)
[2022-05-15] MEDS ORDERED: BISACODYL 10 MG SUPP PR PRN (20:15)
[2022-05-15] MEDS ORDERED: NORCO, ANEXSIA 5/325MG TABLET (HYDROcodone/ACETAMINOPHEN) PO PRN (20:15)
[2022-05-15] MEDS ORDERED: LEVALBUTEROL 1.25 MG/0.5 ML CONCENTRATE NEB NEB PRN (20:15)
[2022-05-15] MEDS ORDERED: PERCOCET 5MG/325MG TAB PO PRN ×2 (20:15)
[2022-05-15] MEDS ORDERED: flumazeniL 0.5 MG/5 ML VIAL IV STA (20:35)
[2022-05-15] MEDS ORDERED: BUPIVACAINE HCL 0.5% 30ML VIAL As Ordered ONE (20:35)
[2022-05-15] MEDS ORDERED: BUPIVACAINE LIPOSOME/PF 1.3% 20ML VIAL (13.3MG/ML)(EXPAREL) As Ordered ONE (20:35)
[2022-05-15] MEDS ORDERED: KETOROLAC 30 MG/ML 1ML VIAL As Ordered ONE (20:51)
[2022-05-15 21:44] LABS: PH BODY FLUID 7.486 UNITS (NOT ESTABLISHED); SOURCE, BODY FLUID pH PERICARDIAL; SPEC. GRAVITY BODY FLUIDS 1.026 (NOT ESTABLISHED)
[2022-05-15 21:49] LABS: APPEARANCE, BODY FLUID TURBID (CLEAR); SOURCE, BODY FLUID PERICARDIAL
[2022-05-15] MEDS ORDERED: METOPROLOL TART 25 MG TABLET PO SCH (22:00)
[2022-05-15] MEDS ORDERED: LIDOCAINE 1% MDV 20ML VIAL SC ONE (22:05)
[2022-05-15] MEDS ORDERED: MIDAZOLAM INJ 2MG/2ML VIAL (J2250 PER 1MG) IV SCH (22:05)
[2022-05-15] MEDS ORDERED: KETOROLAC 30 MG/ML 1ML VIAL IV ONE (22:15)
[2022-05-15 22:23] LABS: LDH, BODY FLUID 1023 U/L (NOT ESTABLISHED); SOURCE, BODY FLUID ALBUMIN PERICARDIAL; SOURCE, BODY FLUID GLUCOSE PERICARDIAL; SOURCE, BODY FLUID LDH PERICARDIAL; SOURCE, BODY FLUID TOT PROTEIN PERICARDIAL; TOTAL PROTEIN, BODY FLUID 4.8 G/DL (NOT ESTABLISHED)
[2022-05-15] MEDS: NYSTATIN 500,000 U/5 ML SUSP UDC PO SCH ×2 (22:32→22:45)
[2022-05-15] MEDS: METOPROLOL TART 25 MG TABLET PO SCH (22:33)
[2022-05-15] MEDS: DOCUSATE SODIUM 100MG CAPSULE PO SCH (22:33)
[2022-05-15] MEDS: ceFAZolin SOD 1 GM in D5W MINI-BAG PLUS 50 ML IV SCH (22:34)
[2022-05-16] VITALS (20 sets, daily range): BP systolic 90–120; BP diastolic 50–61
[2022-05-16] MEDS: LEVALBUTEROL 1.25 MG/0.5 ML CONCENTRATE NEB NEB SCH ×4 (01:06→20:22)
[2022-05-16] MEDS ORDERED: KETOROLAC 30 MG/ML 1ML VIAL IV SCH (03:00)
[2022-05-16 04:59] LABS: BASO % 0.1 % (0.0-1.0); EOS % 0.3 % (0.0-3.0); LYMPH # 0.3 10^3/uL (1.5-5.0); LYMPH % 4.5 % (24.0-44.0); MEAN CORPUSCULAR HEMOGLOBIN 32.4 pg (27.0-33.0); MEAN CORPUSCULAR VOLUME 101.2 fl (80.0-96.0); MONO # 0.5 10^3/uL (0.0-0.8); MONO % 7.9 % (2.0-8.0); NEUTROPHILS # 5.9 10^3/uL (1.5-8.5); NEUTROPHILS % 86.8 % (36.0-66.0); PLATELET COUNT, AUTOMATED 117 10^3/uL (150-450); RED BLOOD COUNT 2.47 10^6/uL (4.30-6.10); WHITE BLOOD COUNT 6.8 10^3/uL (4.0-10.0)
[2022-05-16 05:42] LABS: CALCIUM LEVEL 9.2 MG/DL (8.8-10.2); CREATININE FOR GFR 1.35 MG/DL (0.70-1.30); GLOMERULAR FILTRATION RATE 56.1 (>49); PHOSPHORUS LEVEL 3.5 MG/DL (2.5-4.9); POTASSIUM SERUM 4.2 MEQ/L (3.5-5.1)
[2022-05-16 06:07] LABS: ABG BASE EXCESS -1.1 (-2.0-2.0); ABG HCO3 23.1 MEQ/L (22.0-26.0); ABG O2 SATURATION 96.1 % (95.0-99.0); ABG PARTIAL PRESSURE CO2 35.7 mmHg (35.0-45.0); ABG STANDARD HCO3 23.5 MEQ/L (22.0-26.0); ABG TOTAL CO2 24.2 MEQ/L (23.0-31.0); ABG pH (ARTERIAL) 7.428 UNITS (7.350-7.450)
[2022-05-16] MEDS: METOPROLOL TART 25 MG TABLET PO SCH ×3 (06:18→23:48)
[2022-05-16] MEDS: ceFAZolin SOD 1 GM in D5W MINI-BAG PLUS 50 ML IV SCH ×3 (06:18→23:48)
[2022-05-16] MEDS ORDERED: FUROSEMIDE 40MG/4ML VIAL (J1940) IV ONE (08:35)
[2022-05-16] MEDS: PANTOPRAZOLE 40MG TAB (PROTONIX) PO SCH (09:39)
[2022-05-16] MEDS: MOM 30ML SUSPENSION UDC PO SCH (09:39)
[2022-05-16] MEDS: HEPARIN SOD (PORCINE) 5000UNITS/ML 1ML VIAL/SYRINGE SC SCH ×2 (09:39→21:24)
[2022-05-16] MEDS: NYSTATIN 500,000 U/5 ML SUSP UDC PO SCH ×4 (09:39→21:24)
[2022-05-16] MEDS: DOCUSATE SODIUM 100MG CAPSULE PO SCH ×2 (09:39→21:00)
[2022-05-16] MEDS: COLCHICINE 0.6 MG TABLET PO SCH (14:56)
[2022-05-17] VITALS (37 sets, daily range): BP systolic 85–131; BP diastolic 52–76
[2022-05-17] MEDS: LEVALBUTEROL 1.25 MG/0.5 ML CONCENTRATE NEB NEB SCH ×4 (01:28→20:11)
[2022-05-17] MEDS ORDERED: METOPROLOL 5 MG/5 ML VIAL As Ordered ONE (03:13)
[2022-05-17] MEDS ORDERED: METOPROLOL 5 MG/5 ML VIAL IV STA (03:14)
[2022-05-17] MEDS ORDERED: AMIODARONE HCL 150 MG in IV 1 EA IV ONE (04:00)
[2022-05-17] MEDS ORDERED: DIGOXIN INJ 0.5 MG/2 ML AMP (J1160) IV STA (04:13)
[2022-05-17 04:32] LABS: BASO % 0.2 % (0.0-1.0); EOS % 0.3 % (0.0-3.0); HEMATOCRIT 25.6 % (42.0-52.0); HEMOGLOBIN 8.2 g/dl (13.5-17.5); LYMPH # 0.3 10^3/uL (1.5-5.0); LYMPH % 4.6 % (24.0-44.0); MEAN CORPUSCULAR HEMOGLOBIN 32.2 pg (27.0-33.0); MEAN CORPUSCULAR VOLUME 100.4 fl (80.0-96.0); MONO # 0.5 10^3/uL (0.0-0.8); MONO % 7.9 % (2.0-8.0); NEUTROPHILS # 5.5 10^3/uL (1.5-8.5); NEUTROPHILS % 86.7 % (36.0-66.0); PLATELET COUNT, AUTOMATED 114 10^3/uL (150-450); RED BLOOD COUNT 2.55 10^6/uL (4.30-6.10); WHITE BLOOD COUNT 6.3 10^3/uL (4.0-10.0)
[2022-05-17 05:07] LABS: CK-MB VALUE MASS < 1.0 NG/ML (<3.6); CPK CREATINE PHOSPHOKINASE 9 U/L (39-308); MB/CK RELATIVE INDEX 11.11 (< OR =4)
[2022-05-17] MEDS: METOPROLOL TART 25 MG TABLET PO SCH ×3 (06:00→21:09)
[2022-05-17] MEDS: ceFAZolin SOD 1 GM in D5W MINI-BAG PLUS 50 ML IV SCH ×2 (06:22→14:01)
[2022-05-17] MEDS ORDERED: AMIODARONE HCL 360 MG in IV 1 EA IV SCH (06:25)
[2022-05-17] MEDS: NYSTATIN 500,000 U/5 ML SUSP UDC PO SCH ×4 (08:20→21:07)
[2022-05-17] MEDS: PANTOPRAZOLE 40MG TAB (PROTONIX) PO SCH (08:20)
[2022-05-17] MEDS: COLCHICINE 0.6 MG TABLET PO SCH (08:20)
[2022-05-17] MEDS: HEPARIN SOD (PORCINE) 5000UNITS/ML 1ML VIAL/SYRINGE SC SCH ×2 (08:20→21:07)
[2022-05-17] MEDS: MOM 30ML SUSPENSION UDC PO SCH (08:20)
[2022-05-17] MEDS: DOCUSATE SODIUM 100MG CAPSULE PO SCH ×2 (08:20→21:00)
[2022-05-17 10:13] LABS: CALCIUM LEVEL 8.9 MG/DL (8.8-10.2); CREATININE FOR GFR 1.36 MG/DL (0.70-1.30); GLOMERULAR FILTRATION RATE 55.6 (>49); POTASSIUM SERUM 3.8 MEQ/L (3.5-5.1)
[2022-05-17] MEDS ORDERED: SODIUM CHLORIDE 0.9% 1000ML IV ONE (10:50)
[2022-05-17] MEDS: AMIODARONE HCL 360 MG in IV 1 EA IV SCH (12:13)
[2022-05-17] MEDS ORDERED: NS 500 ML IV ONE (13:00)
[2022-05-17] MEDS ORDERED: D5W/0.9% SODIUM CHLORIDE 1,000 ML IV SCH (16:15)
[2022-05-18] VITALS (52 sets, daily range): BP systolic 70–136; BP diastolic 48–80
[2022-05-18] MEDS ORDERED: METOPROLOL TART 25 MG TABLET PO ONE
[2022-05-18] MEDS: AMIODARONE HCL 360 MG in IV 1 EA IV SCH (00:37)
[2022-05-18] MEDS: LEVALBUTEROL 1.25 MG/0.5 ML CONCENTRATE NEB NEB SCH ×4 (01:54→19:23)
[2022-05-18] MEDS: METOPROLOL TART 25 MG TABLET PO SCH (05:08)
[2022-05-18 05:39] LABS: BASO % 0.1 % (0.0-1.0); EOS % 0.6 % (0.0-3.0); HEMATOCRIT 25.7 % (42.0-52.0); HEMOGLOBIN 8.2 g/dl (13.5-17.5); LYMPH # 0.3 10^3/uL (1.5-5.0); LYMPH % 4.9 % (24.0-44.0); MEAN CORPUSCULAR HEMOGLOBIN 31.9 pg (27.0-33.0); MEAN CORPUSCULAR HGB CONC 31.9 g/dl (32.0-36.5); MONO # 0.5 10^3/uL (0.0-0.8); MONO % 7.6 % (2.0-8.0); NEUTROPHILS % 86.5 % (36.0-66.0); PLATELET COUNT, AUTOMATED 134 10^3/uL (150-450); RED BLOOD COUNT 2.57 10^6/uL (4.30-6.10)
[2022-05-18 06:18] LABS: BLOOD UREA NITROGEN 26 MG/DL (7-18); CARBON DIOXIDE LEVEL 24 MEQ/L (21-32); CHLORIDE LEVEL 109 MEQ/L (98-107); CREATININE FOR GFR 1.18 MG/DL (0.70-1.30); GLOMERULAR FILTRATION RATE > 60.0 (>49); GLUCOSE, FASTING 128 MG/DL (70-100); POTASSIUM SERUM 3.9 MEQ/L (3.5-5.1); SODIUM LEVEL 138 MEQ/L (136-145)
[2022-05-18 06:19] LABS: CALCIUM LEVEL 8.9 MG/DL (8.8-10.2)
[2022-05-18] MEDS ORDERED: VANCOMYCIN HCL 1 MG in IV FLUID PLACE HOLDER 1 EA IV SCH (07:25)
[2022-05-18] MEDS ORDERED: VANCOMYCIN HCL 1,000 MG, VIAL MATE ADAPTER 1 EACH in D5W 250 ML IV ONE (08:00)
[2022-05-18] MEDS: MOM 30ML SUSPENSION UDC PO SCH (09:00)
[2022-05-18] MEDS: DOCUSATE SODIUM 100MG CAPSULE PO SCH (09:00)
[2022-05-18] MEDS ORDERED: METOPROLOL 5 MG/5 ML VIAL IV STA ×2 (09:25→13:10)
[2022-05-18] MEDS: HEPARIN SOD (PORCINE) 5000UNITS/ML 1ML VIAL/SYRINGE SC SCH (09:28)
[2022-05-18] MEDS: NYSTATIN 500,000 U/5 ML SUSP UDC PO SCH ×4 (09:29→20:08)
[2022-05-18] MEDS: COLCHICINE 0.6 MG TABLET PO SCH (09:29)
[2022-05-18] MEDS: PANTOPRAZOLE 40MG TAB (PROTONIX) PO SCH (09:29)
[2022-05-18] MEDS ORDERED: METOPROLOL 5 MG/5 ML VIAL IV ONE (09:30)
[2022-05-18] MEDS: AMIODARONE 200 MG TAB (PACERONE) PO SCH ×2 (12:20→20:08)
[2022-05-18] MEDS: VANCOMYCIN HCL 500 MG in D5W MINI-BAG PLUS 100 ML IV SCH (12:21)
[2022-05-18] MEDS: METOPROLOL TART 50 MG TAB PO SCH ×2 (14:00→22:00)
[2022-05-18] MEDS ORDERED: NS 500 ML IV ONE (14:10)
[2022-05-18] MEDS ORDERED: METOPROLOL TART 50 MG TAB PO ONE (15:00)
[2022-05-18] MEDS ORDERED: DIGOXIN INJ 0.5 MG/2 ML AMP (J1160) IV ONE (16:05)
[2022-05-18] MEDS ORDERED: diltiaZEM 125 MG in NS 100 ML IV SCH (17:00)
[2022-05-18] MEDS: APIXABAN 5 MG TAB (ELIQUIS) PO SCH (20:08)
[2022-05-18] MEDS ORDERED: DIGOXIN INJ 0.5 MG/2 ML AMP (J1160) IV STA (20:37)
[2022-05-19] VITALS (19 sets, daily range): BP systolic 85–141; BP diastolic 51–83
[2022-05-19] MEDS: VANCOMYCIN HCL 500 MG in D5W MINI-BAG PLUS 100 ML IV SCH ×2 (00:57→13:10)
[2022-05-19] MEDS: DIGOXIN INJ 0.5 MG/2 ML AMP (J1160) IV SCH ×3 (00:58→08:22)
[2022-05-19] MEDS: LEVALBUTEROL 1.25 MG/0.5 ML CONCENTRATE NEB NEB SCH ×4 (02:00→19:14)
[2022-05-19 05:22] LABS: BASO % 0.2 % (0.0-1.0); EOS % 0.7 % (0.0-3.0); HEMATOCRIT 24.6 % (42.0-52.0); LYMPH # 0.3 10^3/uL (1.5-5.0); LYMPH % 7.7 % (24.0-44.0); MEAN CORPUSCULAR HEMOGLOBIN 32.8 pg (27.0-33.0); MEAN CORPUSCULAR HGB CONC 32.5 g/dl (32.0-36.5); MEAN CORPUSCULAR VOLUME 100.8 fl (80.0-96.0); MONO # 0.5 10^3/uL (0.0-0.8); MONO % 11.1 % (2.0-8.0); NEUTROPHILS # 3.3 10^3/uL (1.5-8.5); NEUTROPHILS % 79.6 % (36.0-66.0); PLATELET COUNT, AUTOMATED 125 10^3/uL (150-450); RED BLOOD COUNT 2.44 10^6/uL (4.30-6.10); WHITE BLOOD COUNT 4.2 10^3/uL (4.0-10.0)
[2022-05-19 05:47] LABS: BLOOD UREA NITROGEN 21 MG/DL (7-18); CARBON DIOXIDE LEVEL 26 MEQ/L (21-32); CHLORIDE LEVEL 107 MEQ/L (98-107); GLOMERULAR FILTRATION RATE > 60.0 (>49); GLUCOSE, FASTING 89 MG/DL (70-100); POTASSIUM SERUM 3.9 MEQ/L (3.5-5.1); SODIUM LEVEL 137 MEQ/L (136-145)
[2022-05-19 05:48] LABS: CALCIUM LEVEL 8.9 MG/DL (8.8-10.2)
[2022-05-19] MEDS: METOPROLOL TART 50 MG TAB PO SCH ×3 (06:00→22:00)
[2022-05-19] MEDS: APIXABAN 5 MG TAB (ELIQUIS) PO SCH ×2 (08:22→22:24)
[2022-05-19] MEDS: AMIODARONE 200 MG TAB (PACERONE) PO SCH ×2 (08:22→22:24)
[2022-05-19] MEDS: NYSTATIN 500,000 U/5 ML SUSP UDC PO SCH ×4 (08:22→23:05)
[2022-05-19] MEDS: COLCHICINE 0.6 MG TABLET PO SCH (08:22)
[2022-05-19] MEDS: PANTOPRAZOLE 40MG TAB (PROTONIX) PO SCH (08:22)
[2022-05-19] MEDS: LIDOCAINE 5% (LIDODERM) PATCH TD SCH (08:58)
[2022-05-19] MEDS ORDERED: ONDANSETRON 4MG 2ML VIAL IV ONE (20:10)
[2022-05-19] MEDS: **NOTE PATIENT COMMENT** MISC XX SCH (22:24)
[2022-05-20] VITALS: BP 127/63
[2022-05-20] MEDS: VANCOMYCIN HCL 500 MG in D5W MINI-BAG PLUS 100 ML IV SCH ×2 (01:34→12:16)
[2022-05-20] MEDS: LEVALBUTEROL 1.25 MG/0.5 ML CONCENTRATE NEB NEB SCH ×4 (02:00→19:37)
[2022-05-20 04:00] VITALS: BP 111/61
[2022-05-20 04:43] LABS: BASO % 0.2 % (0.0-1.0); EOS % 0.5 % (0.0-3.0); HEMATOCRIT 24.3 % (42.0-52.0); HEMOGLOBIN 7.8 g/dl (13.5-17.5); LYMPH # 0.3 10^3/uL (1.5-5.0); LYMPH % 7.3 % (24.0-44.0); MEAN CORPUSCULAR HEMOGLOBIN 32.2 pg (27.0-33.0); MEAN CORPUSCULAR HGB CONC 32.1 g/dl (32.0-36.5); MEAN CORPUSCULAR VOLUME 100.4 fl (80.0-96.0); MONO # 0.5 10^3/uL (0.0-0.8); MONO % 11.7 % (2.0-8.0); NEUTROPHILS # 3.3 10^3/uL (1.5-8.5); NEUTROPHILS % 79.6 % (36.0-66.0); PLATELET COUNT, AUTOMATED 119 10^3/uL (150-450); RED BLOOD COUNT 2.42 10^6/uL (4.30-6.10); WHITE BLOOD COUNT 4.1 10^3/uL (4.0-10.0)
[2022-05-20] MEDS: METOPROLOL TART 50 MG TAB PO SCH ×2 (05:10→13:06)
[2022-05-20 05:45] LABS: BLOOD UREA NITROGEN 21 MG/DL (7-18); CALCIUM LEVEL 8.9 MG/DL (8.8-10.2); CARBON DIOXIDE LEVEL 26 MEQ/L (21-32); CHLORIDE LEVEL 106 MEQ/L (98-107); CREATININE FOR GFR 1.13 MG/DL (0.70-1.30); DIGOXIN LEVEL 4.1 NG/ML (0.5-2.0); GLOMERULAR FILTRATION RATE > 60.0 (>49); GLUCOSE, FASTING 96 MG/DL (70-100); MAGNESIUM LEVEL 1.9 MG/DL (1.8-2.4); SODIUM LEVEL 137 MEQ/L (136-145)
[2022-05-20 08:00] VITALS: BP 131/65
[2022-05-20] MEDS: COLCHICINE 0.6 MG TABLET PO SCH (08:58)
[2022-05-20] MEDS: NYSTATIN 500,000 U/5 ML SUSP UDC PO SCH ×4 (08:58→20:24)
[2022-05-20] MEDS: LIDOCAINE 5% (LIDODERM) PATCH TD SCH (08:58)
[2022-05-20] MEDS: APIXABAN 5 MG TAB (ELIQUIS) PO SCH ×2 (08:59→20:24)
[2022-05-20] MEDS: AMIODARONE 200 MG TAB (PACERONE) PO SCH ×2 (08:59→20:24)
[2022-05-20] MEDS: PANTOPRAZOLE 40MG TAB (PROTONIX) PO SCH (08:59)
[2022-05-20] MEDS: DRONABINOL 2.5MG CAP (MARINOL) PO SCH ×3 (09:13→17:52)
[2022-05-20] MEDS ORDERED: ONDANSETRON 4MG 2ML VIAL IV PRN (11:45)
[2022-05-20 12:00] VITALS: BP 114/60
[2022-05-20] MEDS: MAGNESIUM OXIDE 400MG TAB (MAG-OX) PO SCH ×2 (12:15→20:24)
[2022-05-20] MEDS ORDERED: VANCOMYCIN HCL 500 MG in D5W MINI-BAG PLUS 100 ML IV ONE (13:00)
[2022-05-20 16:00] VITALS: BP 87/50
[2022-05-20 20:04] VITALS: BP 103/51
[2022-05-20] MEDS: **NOTE PATIENT COMMENT** MISC XX SCH (20:25)
[2022-05-21] VITALS: BP 108/54
[2022-05-21] MEDS: LEVALBUTEROL 1.25 MG/0.5 ML CONCENTRATE NEB NEB SCH ×4 (02:00→20:08)
[2022-05-21 03:56] VITALS: BP 115/59
[2022-05-21] MEDS ORDERED: LR 1,000 ML IV SCH (04:10)
[2022-05-21 04:49] LABS: BASO % 0.1 % (0.0-1.0); EOS % 0.3 % (0.0-3.0); HEMATOCRIT 27.6 % (42.0-52.0); HEMOGLOBIN 8.7 g/dl (13.5-17.5); LYMPH # 0.4 10^3/uL (1.5-5.0); LYMPH % 3.6 % (24.0-44.0); MEAN CORPUSCULAR HGB CONC 31.5 g/dl (32.0-36.5); MEAN CORPUSCULAR VOLUME 101.5 fl (80.0-96.0); MONO # 0.8 10^3/uL (0.0-0.8); MONO % 7.8 % (2.0-8.0); NEUTROPHILS # 8.4 10^3/uL (1.5-8.5); NEUTROPHILS % 87.1 % (36.0-66.0); PLATELET COUNT, AUTOMATED 170 10^3/uL (150-450); RED BLOOD COUNT 2.72 10^6/uL (4.30-6.10); WHITE BLOOD COUNT 9.7 10^3/uL (4.0-10.0)
[2022-05-21 05:18] LABS: CREATININE FOR GFR 1.44 MG/DL (0.70-1.30); GLOMERULAR FILTRATION RATE 52.1 (>49); MAGNESIUM LEVEL 1.8 MG/DL (1.8-2.4); POTASSIUM SERUM 3.9 MEQ/L (3.5-5.1)
[2022-05-21 08:00] VITALS: BP 113/59
[2022-05-21] MEDS: DRONABINOL 2.5MG CAP (MARINOL) PO SCH ×3 (08:27→18:33)
[2022-05-21] MEDS: PANTOPRAZOLE 40MG TAB (PROTONIX) PO SCH (08:28)
[2022-05-21] MEDS: APIXABAN 5 MG TAB (ELIQUIS) PO SCH ×2 (08:28→20:57)
[2022-05-21] MEDS: AMIODARONE 200 MG TAB (PACERONE) PO SCH ×2 (08:28→20:57)
[2022-05-21] MEDS: NYSTATIN 500,000 U/5 ML SUSP UDC PO SCH ×4 (08:28→20:57)
[2022-05-21] MEDS: MAGNESIUM OXIDE 400MG TAB (MAG-OX) PO SCH (08:28)
[2022-05-21] MEDS: LIDOCAINE 5% (LIDODERM) PATCH TD SCH (08:29)
[2022-05-21] MEDS: COLCHICINE 0.6 MG TABLET PO SCH (08:31)
[2022-05-21] MEDS: METOPROLOL TART 25 MG TABLET PO SCH ×2 (08:33→20:52)
[2022-05-21 10:11] LABS: CLOSTRIDIUM DIFFICILE PCR POSITIVE (NEGATIVE)
[2022-05-21 12:00] VITALS: BP 104/51
[2022-05-21] MEDS ORDERED: VANCOMYCIN HCL 1,000 MG, VIAL MATE ADAPTER 1 EACH in D5W 250 ML IV SCH (12:00)
[2022-05-21] MEDS: MAG SULF 1GM/100ML (MAG RUN) 1 GM in IV 1 EA IV SCH ×2 (12:19→13:33)
[2022-05-21] MEDS: VANCOMYCIN ORAL SOL 250MG/5ML ORAL SYRINGE PO SCH ×3 (13:32→20:58)
[2022-05-21] MEDS ORDERED: VANCOMYCIN HCL 750 MG, VIAL MATE ADAPTER 1 EACH in D5W 250 ML IV SCH (14:00)
[2022-05-21 16:00] VITALS: BP 111/56
[2022-05-21 20:00] VITALS: BP 96/52
[2022-05-21] MEDS: **NOTE PATIENT COMMENT** MISC XX SCH (20:52)
[2022-05-22] VITALS: BP 109/55
[2022-05-22] MEDS: LEVALBUTEROL 1.25 MG/0.5 ML CONCENTRATE NEB NEB SCH ×3 (02:00→13:06)
[2022-05-22 04:00] VITALS: BP 114/62
[2022-05-22 04:53] LABS: BASO % 0.2 % (0.0-1.0); EOS % 0.7 % (0.0-3.0); HEMATOCRIT 26.3 % (42.0-52.0); HEMOGLOBIN 8.4 g/dl (13.5-17.5); LYMPH # 0.3 10^3/uL (1.5-5.0); LYMPH % 6.7 % (24.0-44.0); MEAN CORPUSCULAR HEMOGLOBIN 31.9 pg (27.0-33.0); MEAN CORPUSCULAR HGB CONC 31.9 g/dl (32.0-36.5); MONO # 0.6 10^3/uL (0.0-0.8); MONO % 14.8 % (2.0-8.0); NEUTROPHILS # 3.1 10^3/uL (1.5-8.5); NEUTROPHILS % 76.6 % (36.0-66.0); PLATELET COUNT, AUTOMATED 125 10^3/uL (150-450); RED BLOOD COUNT 2.63 10^6/uL (4.30-6.10); WHITE BLOOD COUNT 4.1 10^3/uL (4.0-10.0)
[2022-05-22 05:29] LABS: CALCIUM LEVEL 9.2 MG/DL (8.8-10.2); CREATININE FOR GFR 1.33 MG/DL (0.70-1.30); GLOMERULAR FILTRATION RATE 57.1 (>49); MAGNESIUM LEVEL 2.6 MG/DL (1.8-2.4); POTASSIUM SERUM 3.3 MEQ/L (3.5-5.1)
[2022-05-22] MEDS ORDERED: POTASSIUM CHLORIDE 10% LIQ 20 MEQ/15 ML UDC PO ONE (05:50)
[2022-05-22 08:00] VITALS: BP 134/64
[2022-05-22 08:16] VITALS: BP 134/64
[2022-05-22] MEDS: METOPROLOL TART 25 MG TABLET PO SCH (08:16)
[2022-05-22] MEDS: AMIODARONE 200 MG TAB (PACERONE) PO SCH (08:17)
[2022-05-22] MEDS: DRONABINOL 2.5MG CAP (MARINOL) PO SCH ×2 (08:17→12:30)
[2022-05-22] MEDS: PANTOPRAZOLE 40MG TAB (PROTONIX) PO SCH (08:17)
[2022-05-22] MEDS: APIXABAN 5 MG TAB (ELIQUIS) PO SCH (08:17)
[2022-05-22] MEDS: NYSTATIN 500,000 U/5 ML SUSP UDC PO SCH ×2 (08:17→13:08)
[2022-05-22] MEDS: COLCHICINE 0.6 MG TABLET PO SCH (08:17)
[2022-05-22] MEDS: VANCOMYCIN ORAL SOL 250MG/5ML ORAL SYRINGE PO SCH ×2 (08:18→13:08)
[2022-05-22] MEDS: LIDOCAINE 5% (LIDODERM) PATCH TD SCH (08:18)
[2022-05-22] MEDS ORDERED: SODIUM CHLORIDE 0.9% INJ 10 ML SYR IV SCH (09:00)
[2022-05-22] MEDS ORDERED: SODIUM CHLORIDE 0.9% INJ 10 ML SYR IV PRN (09:00)
[2022-05-22 12:00] VITALS: BP 154/67
[2022-05-22] MEDS ORDERED: LIDO5TD TD (12:16)
[2022-05-22] MEDS ORDERED: FIRV50SO PO ×2 (12:16→16:55)
[2022-05-22] MEDS ORDERED: DOXY-350 PO ×2 (12:16→16:55)
[2022-05-22] MEDS ORDERED: PANT40TA29 PO (12:16)
[2022-05-22] MEDS ORDERED: AMIO200T49 PO (12:16)
[2022-05-22] MEDS ORDERED: ELIQ5TAB PO (12:16)
[2022-05-22] MEDS ORDERED: COLC0.6T47 PO (12:16)
[2022-05-22] MEDS ORDERED: METO1TAB87 PO (12:16)
[2022-05-22] MEDS ORDERED: VANCOMYCIN HCL 500 MG in D5W MINI-BAG PLUS 100 ML IV SCH (15:00)
[2022-05-22 16:00] VITALS: BP 121/60
[2022-05-22] MEDS ORDERED: PROB250C PO (16:49)
== END 2022-05-22 17:43 | disposition home health service (06) | DRG 315 ==
LOC: M ED 10:53 → M ED INP 19:31 → ENRESERV 19:44 → M ICU 20:15
PROVIDERS: ADMIT Internal Medicine; ATTEND Student in an Organized Health Care Education/Training Program
PROC: 0W9D30Z Drainage of Pericardial Cavity with Drainage Device, Percutaneous Approach (ICD-10-PCS; principal; 2022-05-15)
DX: I30.1 Infective pericarditis (principal); I48.92 Unspecified atrial flutter; I24.9 Acute ischemic heart disease, unspecified; C78.01 Secondary malignant neoplasm of right lung; J90 Pleural effusion, not elsewhere classified; I31.2 Hemopericardium, not elsewhere classified; A04.72 Enterocolitis due to Clostridium difficile, not specified as recurrent; C79.89 Secondary malignant neoplasm of other specified sites; I31.3 Pericardial effusion (noninflammatory); I31.4 Cardiac tamponade; C32.9 Malignant neoplasm of larynx, unspecified; I12.9 Hypertensive chronic kidney disease with stage 1 through stage 4 chronic kidney disease, or unspecified chronic kidney disease; N18.30 Chronic kidney disease, stage 3 unspecified; D53.9 Nutritional anemia, unspecified; I48.91 Unspecified atrial fibrillation; D72.829 Elevated white blood cell count, unspecified; Z66 Do not resuscitate; B95.7 Other staphylococcus as the cause of diseases classified elsewhere; I95.9 Hypotension, unspecified; E83.42 Hypomagnesemia; E87.6 Hypokalemia; Z79.899 Other long term (current) drug therapy; Z87.891 Personal history of nicotine dependence; Z92.21 Personal history of antineoplastic chemotherapy

== ENCOUNTER → 2022-05-26 | Outpatient (POV) | payer MEDICARE, OTHER ==
[~2022-05-26] VITALS: Ht 180.3 cm; Wt 55.0 kg
[~2022-05-26] MED LIST changes: +AMIO200T49 PO; +COLC0.6T47 PO; +DOXY-350 PO; +ELIQ5TAB PO; +FIRV50SO PO; +LIDO5TD TD; +METO1TAB87 PO; +PANT40TA29 PO; +PROB250C PO; +[UNRECOGNIZED DRUG - OTHER]
[2022-05-26 14:10] VITALS: BP 144/67
== END ==
LOC: M IRPOV 14:01
PROVIDERS: ATTEND Radiology Diagnostic Radiology
DX: C15.9 Malignant neoplasm of esophagus, unspecified (principal); F17.210 Nicotine dependence, cigarettes, uncomplicated; I10 Essential (primary) hypertension; I48.91 Unspecified atrial fibrillation; R63.4 Abnormal weight loss; Z79.51 Long term (current) use of inhaled steroids; Z79.899 Other long term (current) drug therapy; Z85.21 Personal history of malignant neoplasm of larynx; Z92.21 Personal history of antineoplastic chemotherapy; Z92.3 Personal history of irradiation

== ENCOUNTER → 2022-05-27 | Outpatient (REF) | payer MEDICARE, OTHER ==
[2022-05-27 15:08] LABS: HEMATOCRIT 27.2 % (42.0-52.0); HEMOGLOBIN 8.8 g/dl (13.5-17.5); MEAN CORPUSCULAR HEMOGLOBIN 32.7 pg (27.0-33.0); MEAN CORPUSCULAR HGB CONC 32.4 g/dl (32.0-36.5); MEAN CORPUSCULAR VOLUME 101.1 fl (80.0-96.0); PLATELET COUNT, AUTOMATED 105 10^3/uL (150-450); RED BLOOD COUNT 2.69 10^6/uL (4.30-6.10); WHITE BLOOD COUNT 5.1 10^3/uL (4.0-10.0)
[2022-05-27 15:38] LABS: BLOOD UREA NITROGEN 26 MG/DL (7-18); CARBON DIOXIDE LEVEL 29 MEQ/L (21-32); CHLORIDE LEVEL 104 MEQ/L (98-107); GLOMERULAR FILTRATION RATE > 60.0 (>49); GLUCOSE, FASTING 104 MG/DL (70-100); POTASSIUM SERUM 3.6 MEQ/L (3.5-5.1); SODIUM LEVEL 136 MEQ/L (136-145); VANCOMYCIN LEVEL TROUGH 14.7 UG/ML (10.0-20.0)
== END ==
LOC: M SHH 14:50
PROVIDERS: ATTEND Internal Medicine Infectious Disease
DX: I30.1 Infective pericarditis (principal)

== ENCOUNTER → 2022-05-31 | Outpatient (CLI) | payer MEDICARE, OTHER | LOC: M LABSMTC 11:00 | PROVIDERS: ATTEND Anesthesiology | DX: Z01.818 Encounter for other preprocedural examination (principal); Z11.52 Encounter for screening for COVID-19 ==

== ENCOUNTER → 2022-06-03 | Outpatient (CLI) | payer MEDICARE, OTHER ==
[~2022-06-03] MED LIST changes: +ACETAMINOPHEN *IV* 1,000 MG IV ONE; +GLUCAGON INJ 1MG VIAL As Ordered ONE; +ISOVUE-300 61% 50ML VIAL As Ordered ONE; +LIDOCAINE 1% MDV 20ML VIAL As Ordered ONE; +LIDOCAINE 2% JELLY 5ML TUBE As Ordered ONE; +MIDAZOLAM INJ 2MG/2ML VIAL (J2250 PER 1MG) As Ordered ONE; +NALOXONE INJ 0.4MG/1ML VIAL (J2310 PER 1MG) As Ordered ONE; +NS 1,000 ML IV SCH; +ceFAZolin 2 GM/D5W 50 ML IV BAG (J0690 PER 500MG) As Ordered ONE; +ceFAZolin SOD 2 GM in IV 1 EA IV ONE; +diphenhydrAMINE 50MG/ML VIAL (J1200) As Ordered ONE; +fentaNYL 100 MCG/2 ML INJECTION As Ordered ONE; +flumazeniL 0.5 MG/5 ML VIAL As Ordered ONE
[2022-06-03 17:15] VITALS: BP 143/69
== END ==
LOC: M IRPRO 11:50
PROVIDERS: ATTEND Radiology Diagnostic Radiology
DX: C15.9 Malignant neoplasm of esophagus, unspecified (principal); R06.03 Acute respiratory distress; Z79.51 Long term (current) use of inhaled steroids; Z79.899 Other long term (current) drug therapy
CPT/HCPCS: 49440; 99152; 99153; C1729; C1769; C1887; C1894; J0131; J0690; J1200; J1610; J2250; J2310; J3010; Q9967

== ENCOUNTER 2022-06-16 15:38 | Observation (INO) | payer MEDICARE, OTHER ==
[~2022-06-16] VITALS: Ht 180.3 cm; Wt 51.4 kg
[~2022-06-16 15:38] MED LIST changes: -ACETAMINOPHEN *IV* 1,000 MG IV ONE; -GLUCAGON INJ 1MG VIAL As Ordered ONE; -ISOVUE-300 61% 50ML VIAL As Ordered ONE; -LIDOCAINE 1% MDV 20ML VIAL As Ordered ONE; -LIDOCAINE 2% JELLY 5ML TUBE As Ordered ONE; -MIDAZOLAM INJ 2MG/2ML VIAL (J2250 PER 1MG) As Ordered ONE; -NALOXONE INJ 0.4MG/1ML VIAL (J2310 PER 1MG) As Ordered ONE; -NS 1,000 ML IV SCH; -ceFAZolin 2 GM/D5W 50 ML IV BAG (J0690 PER 500MG) As Ordered ONE; -ceFAZolin SOD 2 GM in IV 1 EA IV ONE; -diphenhydrAMINE 50MG/ML VIAL (J1200) As Ordered ONE; -fentaNYL 100 MCG/2 ML INJECTION As Ordered ONE; -flumazeniL 0.5 MG/5 ML VIAL As Ordered ONE
[2022-06-16] MEDS ORDERED: NS 1,000 ML IV ONE ×2 (16:10→17:15)
[2022-06-16 16:56] LABS: EOS % 0.6 % (0.0-3.0); HEMATOCRIT 29.4 % (42.0-52.0); HEMOGLOBIN 9.4 g/dl (13.5-17.5); LYMPH # 0.3 10^3/uL (1.5-5.0); LYMPH % 9.4 % (24.0-44.0); MEAN CORPUSCULAR HEMOGLOBIN 33.2 pg (27.0-33.0); MEAN CORPUSCULAR VOLUME 103.9 fl (80.0-96.0); MONO # 0.5 10^3/uL (0.0-0.8); MONO % 13.9 % (2.0-8.0); NEUTROPHILS # 2.7 10^3/uL (1.5-8.5); NEUTROPHILS % 75.3 % (36.0-66.0); PLATELET COUNT, AUTOMATED 124 10^3/uL (150-450); RED BLOOD COUNT 2.83 10^6/uL (4.30-6.10); WHITE BLOOD COUNT 3.6 10^3/uL (4.0-10.0)
[2022-06-16 17:24] LABS: CK-MB VALUE MASS < 1.0 NG/ML (<3.6); CPK CREATINE PHOSPHOKINASE 17 U/L (39-308); MB/CK RELATIVE INDEX 5.88 (< OR =4)
[2022-06-16 17:25] LABS: ALBUMIN 2.9 GM/DL (3.2-5.2); ALT/SGPT 122 U/L (12-78); AMYLASE 44 U/L (25-115); BILIRUBIN,DIRECT < 0.1 MG/DL (0.0-0.2); BILIRUBIN,TOTAL 0.2 MG/DL (0.2-1.0); LIPASE 154 U/L (73-393); MAGNESIUM LEVEL 2.2 MG/DL (1.8-2.4); TOTAL PROTEIN 5.8 GM/DL (6.4-8.2)
[2022-06-16 17:32] LABS: RSV AMPLIFICATION NEGATIVE (NEGATIVE)
[2022-06-16] MEDS ORDERED: LR 1,000 ML IV SCH (18:35)
[2022-06-16] MEDS ORDERED: XARE20TA PO (18:43)
[2022-06-16] MEDS: KCL 40MEQ in NS 1000ML 1,000 ML IV SCH (18:45)
[2022-06-16 20:10] LABS: FERRITIN 4687 NG/ML (26-388); IRON (FE) 62 UG/DL (65-175); PERCENT SATURATION 30.2 % (19.7-50.0); TOTAL IRON BINDING CAPACITY 205 UG/DL (250-450)
[2022-06-16 20:31] LABS: VITAMIN B12 LEVEL 1059 PG/ML (247-911)
[2022-06-16] MEDS ORDERED: HOME MED LIST COMPLETE! XX SCH (20:45)
[2022-06-16] MEDS ORDERED: PT COMMENT (20:45)
[2022-06-16 23:15] VITALS: BP 106/51
[2022-06-17] VITALS: BP 101/53
[2022-06-17 01:20] LABS: CALCIUM LEVEL 8.9 MG/DL (8.8-10.2); CREATININE FOR GFR 1.68 MG/DL (0.70-1.30); GLOMERULAR FILTRATION RATE 43.6 (>49); POTASSIUM SERUM 4.2 MEQ/L (3.5-5.1)
[2022-06-17 04:23] VITALS: BP 102/55
[2022-06-17 06:45] LABS: ALBUMIN 2.7 GM/DL (3.2-5.2); BILIRUBIN,TOTAL 0.2 MG/DL (0.2-1.0); CALCIUM LEVEL 9.4 MG/DL (8.8-10.2); CREATININE FOR GFR 1.76 MG/DL (0.70-1.30); GLOMERULAR FILTRATION RATE 41.3 (>49); POTASSIUM SERUM 4.3 MEQ/L (3.5-5.1); TOTAL PROTEIN 5.2 GM/DL (6.4-8.2)
[2022-06-17 07:59] LABS: HEMATOCRIT 28.4 % (42.0-52.0); MEAN CORPUSCULAR HEMOGLOBIN 33.1 pg (27.0-33.0); MEAN CORPUSCULAR HGB CONC 31.7 g/dl (32.0-36.5); MEAN CORPUSCULAR VOLUME 104.4 fl (80.0-96.0); PLATELET COUNT, AUTOMATED 102 10^3/uL (150-450); RED BLOOD COUNT 2.72 10^6/uL (4.30-6.10); WHITE BLOOD COUNT 3.6 10^3/uL (4.0-10.0)
[2022-06-17 08:00] VITALS: BP 106/55
[2022-06-17] MEDS: KCL 40MEQ in NS 1000ML 1,000 ML IV SCH (08:50)
[2022-06-17] MEDS ORDERED: PANTOPRAZOLE 40MG TAB (PROTONIX) PO SCH (09:00)
[2022-06-17] MEDS ORDERED: SODIUM CHLORIDE 0.9% INJ 10 ML SYR IV SCH (09:00)
[2022-06-17] MEDS ORDERED: COLCHICINE 0.6 MG TABLET PO SCH (09:00)
[2022-06-17 12:00] VITALS: BP 106/55
[2022-06-17] MEDS ORDERED: XARE15TA PO (14:00)
[2022-06-17 16:38] VITALS: BP 126/59
[2022-06-17] MEDS ORDERED: BACITRACIN OINTMENT 30GM TUBE TOP PRN (17:00)
[2022-06-17] MEDS ORDERED: SODIUM CHLORIDE 0.9% INJ 10 ML SYR IV PRN (17:00)
[2022-06-17] MEDS ORDERED: RIVAROXABAN 15MG TAB (XARELTO) PO SCH (18:00)
== END 2022-06-17 17:24 | disposition home health service (06) ==
LOC: M ED 15:38 → EDBD 15:38 → M ED INP 17:52 → M PCU 23:12
PROVIDERS: ADMIT Internal Medicine; ATTEND Internal Medicine
DX: I95.9 Hypotension, unspecified (principal); N17.9 Acute kidney failure, unspecified; D61.810 Antineoplastic chemotherapy induced pancytopenia; I48.91 Unspecified atrial fibrillation; E87.2 Acidosis; R62.7 Adult failure to thrive; E87.6 Hypokalemia; Z93.1 Gastrostomy status; C32.9 Malignant neoplasm of larynx, unspecified; Z92.3 Personal history of irradiation; Z92.21 Personal history of antineoplastic chemotherapy; Z87.891 Personal history of nicotine dependence; R63.0 Anorexia; R64 Cachexia; R74.01 Elevation of levels of liver transaminase levels; Z79.899 Other long term (current) drug therapy; Z79.01 Long term (current) use of anticoagulants
CPT/HCPCS: 36415; 71045; 76705; 80047; 80048; 80053; 80076; 80503; 82150; 82550; 82553; 82607; 82728; 82746; 83550; 83605; 83690; 83735; 84484; 85025; 85027; 85046; 87040; 87631; 93005; 93041; 93306; 96361; 96374; 96375; 96376; 97116; 97161; 97165; 97530; 99285; G0378

== ENCOUNTER → 2022-06-22 | Outpatient (REF) | payer MEDICARE, OTHER ==
[~2022-06-22] MED LIST changes: +PT COMMENT; +XARE15TA PO; +XARE20TA PO
[2022-06-22 14:17] LABS: BILIRUBIN,TOTAL 0.3 MG/DL (0.2-1.0); CALCIUM LEVEL 9.6 MG/DL (8.8-10.2); CREATININE FOR GFR 1.53 MG/DL (0.70-1.30); GLOMERULAR FILTRATION RATE 48.6 (>49); POTASSIUM SERUM 4.5 MEQ/L (3.5-5.1)
== END ==
LOC: M SFHCADAM 09:13
PROVIDERS: ATTEND Physician Assistant Medical
DX: D61.818 Other pancytopenia (principal); R13.13 Dysphagia, pharyngeal phase; C32.9 Malignant neoplasm of larynx, unspecified; R74.01 Elevation of levels of liver transaminase levels

== ENCOUNTER → 2022-06-23 | Outpatient (POV) | payer MEDICARE, OTHER ==
[~2022-06-23] VITALS: Ht 180.3 cm; Wt 52.7 kg
[2022-06-23 09:30] VITALS: BP 111/62
== END ==
LOC: M IRPOV 09:23
PROVIDERS: ATTEND Radiology Diagnostic Radiology
DX: Z43.1 Encounter for attention to gastrostomy (principal)